=== PATIENT | female | born 1960 | race Caucasian/White ===

== ENCOUNTER 2016-06-05 06:04 | Emergency (ER) | payer MEDICARE, OTHER ==
[~2016-06-05 06:04] MED LIST: ADVAIR 100-501 EAC1; ADVAIR 250-501 EAC1; ALAVERT10 MG/TAB; ATARAX; BENTYL20 MG PO; BENZAPRIL; BUSPAR5 M1 DOB; COMBIVENT; COMBIVENT RESPIM4 GM; COMBIVENT U/D3 ML; DOXYCYCLINE PO; FAMOTIDINE PO; GABAPENTIN300 MG; HYDROCHLOROTH12.5 MG; HYDROCODON-ACE1 EAC7 PO; HYDROCORTISONE30 G1; LEVAQUIN PO; LEVAQUIN750 M1 PO; LOVAZA1 G PO; METFORMIN HCL500 M1; METFORMIN PO; METOPROLOL SUCC25 MG PO; MIRTAZAPINE30 MG PO; MIRTAZAPINE45 M1 PO; MULTIPLE VITAMI1 T11 PO; NEURONTIN100 MG; NICODERM C1 PATCH .1 TD; NORCO1 TAB 10/3 PO; NORVASC10 MG PO; OMEGA 3; PRAVACHOL; PRAVACHOL PO; PRAVASTATIN SOD40 MG PO; PRINIVIL5 MG PO; PROMETHAZI6.25 MG/5 PO; RAYOS2 MG PO; REMERON; RISPERDAL0.5 M1; RISPERIDONE; RISPERIDONE PO; SERTRALINE HCL25 M2; SYNTHROID; SYNTHROID0.1 MG; SYNTHROID25 MCG PO; ZOFRAN ODT4 MG PO; ZOLOFT PO
[2016-06-10] MEDS ORDERED: DOXYCYCLINE HY100 M3 (22:19)
[2016-06-10] MEDS ORDERED: DELTASONE20 MG (22:19)
[2016-06-14] MEDS ORDERED: ZOLOFT PO (12:54)
[2016-06-14] MEDS ORDERED: RISPERIDONE PO (12:54)
[2016-06-14] MEDS ORDERED: REMERON PO (12:57)
[2016-06-14] MEDS ORDERED: PRAVACHOL PO (12:57)
[2016-06-14] MEDS ORDERED: SYNTHROID PO (12:57)
[2016-06-14] MEDS ORDERED: TOPROL XL PO (12:58)
[2016-06-14] MEDS ORDERED: ADVAIR 100-501 EAC1 INH (12:59)
[2016-06-14] MEDS ORDERED: COMBIVENT RESPIM4 GM INH (12:59)
[2016-06-14] MEDS ORDERED: METFORMIN (13:00)
== END 2016-06-05 06:05 | disposition left against medical advice (07) ==
LOC: SED 06:04
DX: Z53.21 Procedure and treatment not carried out due to patient leaving prior to being seen by health care provider (principal)

== ENCOUNTER 2016-06-14 13:41 | Emergency (ER) | payer MEDICARE, OTHER ==
--- NOTE | ~2016-06-14 | MR18 ---
[facility] A Service of [facility] RADIOLOGY TEXT RESULTS PATIENT: RUI MARTINEZ LOCATION: SED : 59 UNIT #: [id number] AGE: [address]: Rush Brasher MD SEX: F ORDER DR: [id number] [address] [address] [id number] E MR#: [id number] Acc #: [id number] NAME: RUI MARTINEZ. : 1960 SEX: F STUDY DATE/TIME: 06/14/2016 14:41 UNIT: SED ROOM: STUDY DESCRIPTION: MR Brain Wo Contrast Attending Physician: Rush Brasher M.D. Ordering Physician: Rush Brasher M.D. Primary Care Physician: Lakia Roth M.D. MRI CENTER REPORT This report is preliminary unless electronic signature is present. EXAM MRI of the brain without contrast, 06/14/2016. HISTORY 55-year-old female with left-sided numbness and chest pain, as well as palpitations. Left face also is numb, starting this morning. Weakness in the left upper extremity. TECHNIQUE Sagittal and axial T1, axial T2, axial FLAIR, axial diffusion, axial gradient echo images were obtained through the region of the brain. FINDINGS There is no shift of the midline structures, mass effect, or restricted diffusion present within the brain parenchyma. On the FLAIR sequence, there are no changes of chronic infarction or sequelae of small vessel ischemic change. Midline structures are intact, and no pituitary or pineal lesions are seen. No hemorrhage or blood products are demonstrated on the gradient echo image. The paranasal sinuses and mastoid air cells are clear. No orbital lesions are seen. IMPRESSION 1. No evidence of an acute or chronic infarct. 2. No mass effect or edema. 3. Clear sinuses and mastoid air cells. Dictated by... Antonio Simpson M.D. [facility] A Service of [facility] RADIOLOGY TEXT RESULTS PATIENT: RUI MARTINEZ LOCATION: SED : 59 UNIT #: [id number] AGE: [address]: Rush Brasher MD SEX: F ORDER DR: THIS IS AN ELECTRONICALLY VERIFIED REPORT Antonio Simpson M.D. at 06/15/2016 5:15 PM Dee TD: 06/14/2016 19:15 JOB #: [id number] MRI CENTER REPORT
--- NOTE | ~2016-06-14 | EKG ---
PATIENT: RUI MARTINEZ UNIT #: [id number] Ventricular Rate: 97 BPM Atrial Rate: 97 BPM P-R Interval: 140 ms QRS Duration: 82 ms Q-T Interval: 376 ms QTC Calculation(Bezet): 477 ms P [place]: 57 degrees Calculated R [place]: 55 degrees Calculated T [place]: 55 degrees Diagnosis Line: Normal sinus rhythm Diagnosis Line: RSR' or QR pattern in V1 suggests right Diagnosis Line: ventricular conduction delay Diagnosis Line: Prolonged QT Diagnosis Line: Abnormal ECG Diagnosis Line: When compared with ECG of 10-JUN-2016 22:14, Diagnosis Line: Premature supraventricular complexes are no longer Diagnosis Line: Present Diagnosis Line: Confirmed by KEYONA BARGER MD ([id number]) on 06/14/2016 Diagnosis Line: 6:04:26 PM INTERPRETING MD: DENITA IRENE
[2016-06-14 13:19] LABS: POC - CKMB 2.4 ng/mL (0.0-7.9); POC - TROPONIN <0.05 ng/mL (<=0.05)
[~2016-06-14 13:41] MED LIST changes: +ADVAIR 100-501 EAC1 INH; +COMBIVENT RESPIM4 GM INH; +DELTASONE20 MG; +DOXYCYCLINE HY100 M3; +METFORMIN; +REMERON PO; +SYNTHROID PO; +TOPROL XL PO
[2016-06-14 13:46] LABS: BASOPHIL# 0.1 X10e3 (0-0.3); BASOPHIL% 0.4 % (0-2.5); EOSINOPHIL# 0.2 X10e3 (0-0.7); EOSINOPHIL% 1.1 % (0.0-7.0); HEMATOCRIT 46.5 % (35.0-45.0); HEMOGLOBIN 15.2 gm/dL (12.0-16.0); LYMPHOCYTE# 4.8 X10e3 (1.0-3.5); LYMPHOCYTE% 35.7 % (17.0-45.0); MEAN CELL VOLUME 79.9 FL (83-96); MEAN CORPUSCULAR HEMOGLOBIN 26.2 PG (28-34); MEAN CORPUSCULAR HGB CONC 32.8 g/dL (30-36); MONOCYTE# 0.8 X10e3 (0-1.0); MONOCYTE% 5.7 % (3.0-12.0); NEUTROPHIL# 7.7 X10e3 (1.5-7.1); NEUTROPHIL% 57.1 % (40-75); PLATELET COUNT 465 X10e3 (140-420); RED BLOOD COUNT 5.82 X10e (3.90-5.30); RED CELL DISTRIBUTION WIDTH 17.3 % (11.0-15.5); WHITE BLOOD COUNT 13.5 X10e3 (4.0-10.5)
[2016-06-14 13:47] LABS: BLOOD UREA NITROGEN 22 mg/dL (9-23); BUN/CREATININE RATIO 31.42; CALCIUM SERUM 9.7 mg/dL (8.4-10.2); CARBON DIOXIDE 28 mmol/L (22-31); CHLORIDE 99 mmol/L (100-111); CREATININE SERUM 0.7 mg/dL (0.6-1.4); GLOM FILT RATE Estimated ABOVE60 mL/min (>60); GLUCOSE FASTING 102 mg/dL (70-110); POTASSIUM 3.3 mmol/L (3.5-5.1); SODIUM 137 mmol/L (135-145)
[2016-06-14 13:48] LABS: DIFF IND NO
[2016-06-14 15:37] LABS: POC - CKMB 1.8 ng/mL (0.0-7.9); POC - MYOGLOBIN 78.8 ng/mL (0.0-169.0); POC - TROPONIN <0.05 ng/mL (<=0.05)
== END 2016-06-14 16:12 | disposition home or self-care (01) ==
LOC: SED 13:41
PROVIDERS: Emergency Medicine
DX: R07.89 Other chest pain (principal); R00.2 Palpitations; R20.9 Unspecified disturbances of skin sensation; F17.200 Nicotine dependence, unspecified, uncomplicated; Z88.0 Allergy status to penicillin; Z88.1 Allergy status to other antibiotic agents
CPT/HCPCS: 36415; 70551; 80048; 82553; 83874; 84484; 85025; 99284

== ENCOUNTER 2016-06-23 05:30 | Emergency (ER) | payer MEDICARE, OTHER ==
--- NOTE | ~2016-06-23 | EKG ---
PATIENT: RUI MARTINEZ UNIT #: [id number] Ventricular Rate: 70 BPM Atrial Rate: 70 BPM P-R Interval: 148 ms QRS Duration: 88 ms Q-T Interval: 420 ms QTC Calculation(Bezet): 453 ms P [place]: 45 degrees Calculated R [place]: 44 degrees Calculated T [place]: 34 degrees Diagnosis Line: Normal sinus rhythm Diagnosis Line: Normal ECG Diagnosis Line: When compared with ECG of 14-JUN-2016 12:49, Diagnosis Line: No significant change was found Diagnosis Line: Confirmed by KEYONA BARGER MD ([id number]) on 06/24/2016 Diagnosis Line: 5:36:31 PM INTERPRETING MD: DENITA IRENE
== END 2016-06-23 05:37 | disposition home or self-care (01) ==
LOC: SED 05:30
DX: R00.2 Palpitations (principal); F41.9 Anxiety disorder, unspecified; E11.9 Type 2 diabetes mellitus without complications; J44.9 Chronic obstructive pulmonary disease, unspecified; F17.200 Nicotine dependence, unspecified, uncomplicated
CPT/HCPCS: 93005; 99283

== ENCOUNTER 2016-06-25 22:34 | Emergency (ER) | payer MEDICARE, OTHER ==
[2016-06-26] MEDS ORDERED: ZOLOFT PO (01:58)
[2016-06-26] MEDS ORDERED: RISPERIDONE PO (01:59)
[2016-06-26] MEDS ORDERED: REMERON45 MG PO (01:59)
[2016-06-26] MEDS ORDERED: PRAVASTATIN SOD40 MG PO (02:00)
[2016-06-26] MEDS ORDERED: SYNTHROID25 MCG PO (02:00)
[2016-06-26] MEDS ORDERED: FISH OIL 1,001000 M1 PO (02:01)
[2016-06-26] MEDS ORDERED: ZOLOFT50 MG PO (09:30)
[2016-06-26] MEDS ORDERED: METFORMIN HCL500 M3 PO ×2 (09:34)
[2016-06-26] MEDS ORDERED: BUSPAR15 MG PO (09:35)
[2016-06-26] MEDS ORDERED: LOPRESSOR PO (09:37)
[2016-06-26] MEDS ORDERED: ADVAIR 250-501 EAC1 INH (09:38)
[2016-06-26] MEDS ORDERED: ASPIRIN81 MG PO (11:15)
== END 2016-06-25 22:35 | disposition left against medical advice (07) ==
LOC: SED 22:34
DX: Z53.21 Procedure and treatment not carried out due to patient leaving prior to being seen by health care provider (principal)

== ENCOUNTER 2016-06-26 00:34 | Observation (INO) | payer MEDICARE, OTHER ==
[2016-06-25 23:51] LABS: BASOPHIL# 0.1 X10e3 (0-0.3); BASOPHIL% 0.7 % (0-2.5); EOSINOPHIL# 0.4 X10e3 (0-0.7); EOSINOPHIL% 3.3 % (0.0-7.0); HEMATOCRIT 41.8 % (35.0-45.0); HEMOGLOBIN 13.5 gm/dL (12.0-16.0); LYMPHOCYTE# 4.4 X10e3 (1.0-3.5); LYMPHOCYTE% 39.8 % (17.0-45.0); MEAN CELL VOLUME 80.7 FL (83-96); MEAN CORPUSCULAR HGB CONC 32.2 g/dL (30-36); MEAN PLATELET VOLUME 7.1 FL (6.5-11.5); NEUTROPHIL# 5.3 X10e3 (1.5-7.1); NEUTROPHIL% 47.2 % (40-75); PLATELET COUNT 377 X10e3 (140-420); RED BLOOD COUNT 5.18 X10e (3.90-5.30); RED CELL DISTRIBUTION WIDTH 17.5 % (11.0-15.5); WHITE BLOOD COUNT 11.1 X10e3 (4.0-10.5)
[2016-06-25 23:55] LABS: DIFF IND NO
--- NOTE | ~2016-06-26 | CR72 ---
[facility] A Service of [facility] RADIOLOGY TEXT RESULTS PATIENT: RUI MARTINEZ LOCATION: [place] [address] : 58 UNIT #: [id number] AGE: [address]: Amanda Coronado MD SEX: F ORDER DR: [id number] [facility] [address]. [place], [place] [address] [id number] I MR#: [id number] Acc #: [id number] NAME: RUI MARTINEZ. : 1960 SEX: F STUDY DATE/TIME: 06/26/2016 0:36 UNIT: C5B ROOM: [facility] STUDY DESCRIPTION: CR Chest Single View Portable Attending Physician: Amanda Coronado M.D. Ordering Physician: Raymundo Jimenez M.D. Primary Care Physician: Lakia Roth M.D. MEDICAL IMAGING REPORT This report is preliminary unless electronic signature is present EXAM AP portable chest. DATE OF EXAM 06/26/2016 HISTORY Chest pain and wheezing. COPD, shortness of breath for 1 day. COMPARISON AP portable chest, 06/08/2016. FINDINGS Left basilar atelectasis or infiltrate is present. There may be small left pleural effusion as well. Old left seventh rib fracture. Degenerative spurring in the thoracic spine IMPRESSION 1. Left basilar atelectasis or infiltrate with small left pleural effusion. 2. Old left rib fracture. Dictated by... Maryana Echeverria M.D. THIS IS AN ELECTRONICALLY VERIFIED REPORT Maryana Echeverria M.D. at 06/26/2016 10:47 PM HORACE/reese TD: 06/26/2016 20:44 JOB #: [id number] [facility] Service [facility] RADIOLOGY TEXT RESULTS PATIENT: RUI MARTINEZ LOCATION: [place] [address] : 58 UNIT #: [id number] AGE: [address]: Amanda Coronado MD SEX: F ORDER DR: MEDICAL IMAGING REPORT COPY
--- NOTE | ~2016-06-26 | HP ---
Unit #: [id number] #: [id number] Patient: RUI MARTINEZ [id number] [facility]. [address] [place], [place] [address] [id number] I MR#: [id number] NAME: RUI MARTINEZ. ROOM: 557 Age: 55 Sex: F Admission Date: 06/26/2016 : 1960 Attending Physician: Amanda Coronado M.D. Primary Care Physician: Lakia Roth M.D. HISTORY AND PHYSICAL HISTORY OF PRESENT ILLNESS This is a 55-year-old white female known to Dr. Herbert, with a past medical history of palpitations. The patient states that she had a Holter monitor sometime last week. She called the office for the results and was told by the nurse that it was normal. She had an exercise Cardiolite stress test in 12/2015 that revealed no ischemia and an ejection fraction of 77%. However, she had poor exercise tolerance of only 3 minutes 19 seconds. A two-dimensional echocardiogram was completed at that time and revealed normal valves. Additional past medical history includes hypertension, hyperlipidemia, hypothyroidism, anxiety, depression, chronic obstructive pulmonary disease and type 2 diabetes mellitus on Metformin. The patient continues to actively use tobacco. She presented to the emergency department with multiple complaints. She states that for quite some time she has had palpitations. Recently over the last few days the palpitations have worsened in frequency. Yesterday she developed an episode where her heart was racing and she had some pain in her left anterior chest. The pain was difficult to describe. There was no radiation into the neck, jaw or shoulders. However, she had some numbness in her arms. She felt very weak and fatigued and also had some numbness in her legs during the episode. It lasted for a couple of seconds and then resolved. She admits to some shortness of breath which she relates to her chronic obstructive pulmonary disease. There are no reports of PND, orthopnea or lower extremity edema. She has some occasional dizziness, but no history of syncope. She has been taking all of her medications. She was put on metoprolol by her primary care physician, but can only take a low dose due to borderline low blood pressure readings at home. In the emergency department her temperature was 98.4, pulse 79, blood pressure 124/81 and O2 saturations 94% on room air. Initial labs revealed normal renal function. Potassium was low at 3.2. Troponin was negative at 0.03. The patient was given a liter of normal saline and 125 mg of IV Solu-Medrol. She was admitted for further evaluation of chest pain and palpitations. PAST MEDICAL HISTORY 1. Recent Holter monitor last week, reportedly normal per patient. Records unavailable. 2. Two-dimensional echocardiogram 01/06/2016 revealed a left ventricular ejection fraction of 55%. Normal valves. 3. Exercise Cardiolite stress test 01/06/2016 revealed no ischemia. Unit #: [id number] #: [id number] Patient: RUI MARTINEZ Left ventricular ejection fraction 77%. Poor exercise tolerance at 3 minutes 19 seconds. 4. Hyperlipidemia. 5. Hypertension. 6. Diabetes mellitus type 2 on oral medications. 7. Chronic obstructive pulmonary disease. 8. Hypothyroidism. 9. Depression. 10. Anxiety. 11. Active tobacco abuse. PAST SURGICAL HISTORY 1. Appendectomy. 2. Right foot surgery. 3. Fibroid tumor removal. 4. Thumb surgery. 5. Colonoscopy in 2004. SOCIAL HISTORY The patient lives in a private residence. She continues to actively smoke a few cigarettes per day. She has smoked up to one pack of cigarettes per day for over 20 years. There are no reports of alcohol or illicit drug use. FAMILY HISTORY Noncontributory for heart disease. ALLERGIES Penicillin and clarithromycin. HOME MEDICATIONS 1. Advair 1 Discus inhalation b.i.d. 2. Remeron 45 mg p.o. at nighttime. 3. Zoloft 100 mg p.o. q. morning. 4. Zoloft 50 mg p.o. at bedtime. 5. Metformin 1000 mg q. morning and 500 mg at bedtime. 6. Risperdal 3 mg p.o. t.i.d. Of note, there has been a discrepancy with the dose of this particular medication. [facility] pharmacy was called for clarification. 7. BuSpar 15 mg p.o. t.i.d. 8. Metoprolol tartrate 12.5 mg p.o. daily. 9. Pravastatin 40 mg p.o. daily. 10. Fish oil 1000 mg p.o. b.i.d. 11. Synthroid 0.025 m p.o. daily before breakfast. REVIEW OF SYSTEMS Twelve point review of systems negative except for details noted above. The patient has had an occasional cough with productive sputum. She admits to headaches and recent dizziness, but not actively. She has had some diarrhea, but not currently. There are no reports of fever or chills. PHYSICAL EXAMINATION GENERAL: The patient is a 55-year-old white female who is anxious, but in no acute distress. VITALS: Temperature 97.6, pulse 74, blood pressure 121/68. SKIN: Warm and dry. HEENT: NECK: Supple. No jugular venous distension. No hepatojugular reflux. Unit #: [id number] #: [id number] Patient: RUI MARTINEZ Normal carotid upstrokes. No carotid bruits auscultated. LUNGS: Bilateral breath sounds have good air entry throughout lung ramos. Respirations even and unlabored. No rales, rhonchi or wheezes. HEART: S1 and S2. Regular rate and rhythm. No murmurs, rubs or gallops. ABDOMEN: Soft, nontender and nondistended. Positive bowel sounds auscultated in four quadrants. No ascites noted. EXTREMITIES: Bilateral lower extremities have no pretibial pitting edema. Dorsalis pedis and posterior tibial pulses 2+. Capillary refill less than 3 seconds. DIAGNOSTIC STUDIES LABORATORY: White blood cell count 11.1, hemoglobin 13.5, hematocrit 41.8, platelets 377, sodium 141, potassium 3.2, chloride 104, CO2 26, BUN 9, creatinine 0.5, glucose 88, troponin 0.03 and 0.03. TSH and fasting lipid profile pending. CARDIOVASCULAR: Electrocardiogram reveals sinus rhythm with nonspecific ST-T wave changes in the inferior leads. QTC 451 msec. ASSESSMENT 1. Palpitations. 2. Chest pain, ruled out for myocardial infarction. 3. Exercise Cardiolite stress test with no ischemia 12/2015. 4. Left ventricular ejection fraction 55% with normal valves 12/2015. 5. Hypokalemia. 6. Anxiety. 7. Depression. 8. Chronic obstructive pulmonary disease with continued tobacco abuse. 9. Hyperlipidemia. 10. Diabetes mellitus type 2. PLAN 1. The patient presented to the hospital with complaints of chest pain and palpitations. She is admitted for further observation. 2. TSH is pending for today. The patient's potassium is low and has been supplemented. 3. Cardiac enzymes are negative and she has ruled out for myocardial infarction. 4. She has been recommended to undergo cardiac catheterization due to recurrent chest pain and recently normal stress test. 5. The office will call the patient to arrange an outpatient cardiac catheterization within the next week. 6. The office will also arrange an outpatient Holter versus event monitor. 7. The patient does have some wheezing on exam and states that she follows with Dr. Ho. She has an appointment next week. 8. She wants to go home and follow up with in the office. 9. She has been encouraged to quit smoking. Dictated by Shalonda England APRN for Shreyas Morales/gabriella Unit #: [id number] #: [id number] Patient: MYKE MARTINEZGm Yusuf TD: 06/26/2016 12:03 JOB #: [id number] HISTORY AND PHYSICAL X X HISTORY AND PHYSICAL
--- NOTE | ~2016-06-26 | EKG ---
PATIENT: RUI MARTINEZ UNIT #: [id number] Ventricular Rate: 72 BPM Atrial Rate: 72 BPM P-R Interval: 152 ms QRS Duration: 86 ms Q-T Interval: 412 ms QTC Calculation(Bezet): 451 ms P [place]: 55 degrees Calculated R [place]: 29 degrees Calculated T [place]: 19 degrees Diagnosis Line: Normal sinus rhythm Diagnosis Line: Normal ECG Diagnosis Line: When compared with ECG of 23-JUN-2016 05:18, Diagnosis Line: No significant change was found Diagnosis Line: Confirmed by JAMI GALICIA MD ([id number]) on Diagnosis Line: 06/28/2016 12:02:36 AM INTERPRETING MD: FRIDA IRENE
[2016-06-26 00:20] LABS: ALBUMIN SERUM 3.9 g/dL (3.5-5.0); ALKALINE PHOSPHATASE 56 U/L (32-92); ALT (SGPT) 25 U/L (10-40); AST (SGOT) 26 U/L (10-42); BILIRUBIN, DIRECT 0.1 mg/dL (0.0-0.2); BILIRUBIN,INDIRECT 0.2 mg/dL (0.0-0.9); BILIRUBIN,TOTAL 0.3 mg/dL (0.2-2.0); BLOOD UREA NITROGEN 9 mg/dL (9-23); CALCIUM SERUM 8.9 mg/dL (8.4-10.2); CARBON DIOXIDE 26 mmol/L (22-31); CHLORIDE 104 mmol/L (100-111); CREATININE SERUM 0.5 mg/dL (0.6-1.4); GLOM FILT RATE Estimated ABOVE60 mL/min (>60); GLUCOSE FASTING 88 mg/dL (70-110); POTASSIUM 3.2 mmol/L (3.5-5.1); PROTEIN TOTAL SERUM 6.9 g/dL (6.0-8.3); SODIUM 141 mmol/L (135-145)
[2016-06-26 00:41] LABS: URINE SOURCE CLEAN CATCH
[2016-06-26 00:55] LABS: URINE APPEARANCE CLEAR; URINE BILIRUBIN NEG (NEG); URINE BLOOD 1+ (NEG); URINE COLOR YELLOW; URINE GLUCOSE NEG (NEG); URINE KETONE NEG (NEG); URINE LEUKOCYTE ESTERASE NEG (NEG); URINE NITRATE NEG (NEG); URINE PH 6.5 (5-8); URINE PROTEIN NEG (NEG); URINE SPECIFIC GRAVITY 1.007 (1.003-1.035); URINE UROBILINOGEN 0.2 MG/DL (NEG)
[2016-06-26 00:58] LABS: URINE BACTERIA AUWI NEG (NEGATIVE); URINE SQUAMOUS EPITHELIAL CELL NONE SEEN /[HPF]; UWBCS1 AUWI 0-2 (0-5)
[2016-06-26 01:01] LABS: CULTURE INDICATED? NO
[2016-06-26 01:19] LABS: POC - CKMB 1.3 ng/mL (0.0-7.9); POC - TROPONIN <0.05 ng/mL (<=0.05)
[2016-06-26] MEDS ORDERED: ZOLOFT PO (01:58)
[2016-06-26] MEDS ORDERED: RISPERIDONE PO (01:59)
[2016-06-26] MEDS ORDERED: REMERON45 MG PO (01:59)
[2016-06-26] MEDS ORDERED: PRAVASTATIN SOD40 MG PO (02:00)
[2016-06-26] MEDS ORDERED: SYNTHROID25 MCG PO (02:00)
[2016-06-26] MEDS ORDERED: FISH OIL 1,001000 M1 PO (02:01)
[2016-06-26 04:23] LABS: CK TOTAL 36 IU/L (26-140)
[2016-06-26] MEDS ORDERED: ZOLOFT50 MG PO (09:30)
[2016-06-26] MEDS ORDERED: METFORMIN HCL500 M3 PO ×2 (09:34)
[2016-06-26] MEDS ORDERED: BUSPAR15 MG PO (09:35)
[2016-06-26] MEDS ORDERED: LOPRESSOR PO (09:37)
[2016-06-26] MEDS ORDERED: ADVAIR 250-501 EAC1 INH (09:38)
[2016-06-26 11:07] LABS: %MB 5.1 % (0.0-4.0); MB 3.6 ng/ml
[2016-06-26] MEDS ORDERED: ASPIRIN81 MG PO (11:15)
[2016-06-26 11:18] LABS: CHOLESTEROL 157 mg/dL (0-200); HDL CHOLESTEROL 39 mg/dL (35-95); LDL CHOLESTEROL 78 mg/dL ([, -130]); LDL/HDL RATIO 2 RATIO (0-4); TRIGLYCERIDES 199 mg/dL (10-160)
== END 2016-06-26 12:10 | disposition home or self-care (01) ==
LOC: CED 00:34 → CEDOF 01:30 → C5B 03:10
PROVIDERS: Emergency Medicine; Internal Medicine Cardiovascular Disease
DX: R00.2 Palpitations (principal); R07.89 Other chest pain; E87.6 Hypokalemia; F41.9 Anxiety disorder, unspecified; F32.9 Major depressive disorder, single episode, unspecified; J44.9 Chronic obstructive pulmonary disease, unspecified; E78.5 Hyperlipidemia, unspecified; E11.9 Type 2 diabetes mellitus without complications; Z79.84 Long term (current) use of oral hypoglycemic drugs; I10 Essential (primary) hypertension; F17.210 Nicotine dependence, cigarettes, uncomplicated; Z88.1 Allergy status to other antibiotic agents; Z88.0 Allergy status to penicillin
CPT/HCPCS: 36415; 71010; 80048; 80061; 80076; 81003; 82550; 82553; 82947; 84443; 84484; 85025; 93005; 94640; 96361; 96374; 99285; G0378; J1650; J2930

== ENCOUNTER 2016-06-30 23:55 | Emergency (ER) | payer MEDICARE, OTHER ==
--- NOTE | ~2016-06-30 | CT16 ---
[facility] A Service of [facility] RADIOLOGY TEXT RESULTS PATIENT: RUI MARTINEZ LOCATION: [facility] : 59 UNIT #: [id number] AGE: [address]: Jeanie Thornton MD SEX: F ORDER DR: [id number] [facility] [address] [place], [place] [address] [id number] MR#: [id number] #: [id number] NAME: RUI MARTINEZ. : 1960 SEX: F STUDY DATE/TIME: 07/01/2016 1:15 UNIT: [facility] ROOM: STUDY DESCRIPTION: CT Angio Chest for PE Attending Physician: Jeanie Thornton M.D. Ordering Physician: Jeanie Thornton M.D. Primary Care Physician: Lakia Roth M.D. MEDICAL IMAGING REPORT This report is preliminary unless electronic signature is present EXAM CT angiography of the chest with contrast pulmonary embolism protocol. Date: 07/01/2016 HISTORY Left upper chest pain and shortness of breath today. Stabbing pain in the back. COMPARISON CTA chest PE protocol 03/29/2016. AP portable chest 06/30/2016 at 2330. TECHNIQUE 2 mm axial images through the chest after IV contrast administration. 3-D coronal MIP reformatted images were obtained. This CT exam was performed with one or more of the following radiation dose reduction techniques: Automatic exposure control, adjustment of mA and/or kV according to patient size, and iterative reconstruction. FINDINGS There is no pulmonary embolism. There is no thoracic aortic aneurysm or aortic dissection. No pathologic adenopathy. No pericardial effusion. No pleural effusion. Cholelithiasis. Remainder included upper abdominal organs appear unremarkable. 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 Chronic-appearing scarring within the lingula. Mild emphysematous changes. Multiple old left rib fractures, some of which demonstrate no osseous union, but are similar to the prior study. No acute displaced left rib fracture is identified. No acute vertebral body fracture is seen. IMPRESSION 1. No pulmonary embolism. No aortic aneurysm or aortic dissection. [facility] A Service of [facility] RADIOLOGY TEXT RESULTS PATIENT: RUI MARTINEZ LOCATION: [facility] : 58 UNIT #: [id number] AGE: [address]: Jeanie Thornton MD SEX: F ORDER DR: 2. Mild scarring or atelectasis in the lingula. No dense consolidation. 3. Mild emphysema. 4. Multiple old left rib fractures, some of which are nonunited, but appear similar to the 03/29/2016 examination. 5. Cholelithiasis. 6. 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 Dictated by... Maryana Echeverria M.D. THIS IS AN ELECTRONICALLY VERIFIED REPORT Maryana Echeverria M.D. at 07/02/2016 12:11 AM DEIRDRE/thomas TD: 07/01/2016 12:08 JOB #: [id number] MEDICAL IMAGING REPORT COPY
--- NOTE | ~2016-06-30 | CR72 ---
[facility] A Service of [facility] RADIOLOGY TEXT RESULTS PATIENT: RUI MARTINEZ LOCATION: [facility] : 58 UNIT #: [id number] AGE: [address]: Jeanie Thornton MD SEX: F ORDER DR: [id number] [facility] [address]. [place], [place] [address] [id number] E MR#: [id number] Acc #: [id number] NAME: RUI MARTINEZ : 1960 SEX: F STUDY DATE/TIME: 06/30/2016 23:30 UNIT: [facility] ROOM: STUDY DESCRIPTION: CR Chest Single View Portable Attending Physician: Jeanie Thornton M.D. Ordering Physician: Jeanie Thornton M.D. Primary Care Physician: Lakia Roth M.D. MEDICAL IMAGING REPORT This report is preliminary unless electronic signature is present EXAM AP portable chest DATE 06/30/2016 at 2330 HISTORY 55-year-old female with cough and back pain starting today, 06/30/2016. No known injury. History of cardiac arrhythmia. History of smoking. COMPARISON AP portable chest radiograph 06/26/2016. FINDINGS Old left rib fractures are demonstrated. There is minimal linear scarring or subsegmental atelectasis in the left costophrenic angle. No dense lung consolidations are seen. Heart size is normal. No pleural effusion or pneumothorax. Degenerative endplate spurring is present within the thoracic spine. IMPRESSION 1. Minimal linear scarring or subsegmental atelectasis in the left costophrenic angle. No consolidation. 2. Old left rib fracture. Dictated by... Maryana Echeverria M.D. THIS IS AN ELECTRONICALLY VERIFIED REPORT Maryana Echeverria M.D. at 07/02/2016 12:12 AM [facility]/thomas TD: 07/01/2016 11:43 [facility] A Service of [facility] RADIOLOGY TEXT RESULTS PATIENT: RUI MARTINEZ LOCATION: [facility] #: [id number] : 58 UNIT #: [id number] AGE: [address]: Jeanie Thornton MD SEX: F ORDER DR: JOB #: [id number] MEDICAL IMAGING REPORT COPY
--- NOTE | ~2016-06-30 | EKG ---
PATIENT: RUI MARTINEZ UNIT #: [id number] Ventricular Rate: 82 BPM Atrial Rate: 82 BPM P-R Interval: 146 ms QRS Duration: 84 ms Q-T Interval: 418 ms QTC Calculation(Bezet): 488 ms P [place]: 52 degrees Calculated R [place]: 51 degrees Calculated T [place]: 47 degrees Diagnosis Line: Normal sinus rhythm Diagnosis Line: Low voltage QRS Diagnosis Line: Prolonged QT Diagnosis Line: Abnormal ECG Diagnosis Line: No previous ECGs available Diagnosis Line: Confirmed by KEYONA BARGER MD ([id number]) on 07/01/2016 Diagnosis Line: 5:46:25 PM INTERPRETING MD: DENITA IRENE
[2016-06-30 23:47] LABS: POC - TROPONIN <0.05 ng/mL (<=0.05)
[2016-06-30 23:55] LABS: BASOPHIL# 0.1 X10e3 (0-0.3); BASOPHIL% 0.6 % (0-2.5); EOSINOPHIL# 0.3 X10e3 (0-0.7); EOSINOPHIL% 2.3 % (0.0-7.0); HEMATOCRIT 41.4 % (35.0-45.0); HEMOGLOBIN 13.3 gm/dL (12.0-16.0); LYMPHOCYTE# 4.7 X10e3 (1.0-3.5); LYMPHOCYTE% 42.4 % (17.0-45.0); MEAN CELL VOLUME 80.3 FL (83-96); MEAN CORPUSCULAR HEMOGLOBIN 25.8 PG (28-34); MEAN CORPUSCULAR HGB CONC 32.1 g/dL (30-36); MEAN PLATELET VOLUME 7.2 FL (6.5-11.5); MONOCYTE# 0.9 X10e3 (0-1.0); MONOCYTE% 7.8 % (3.0-12.0); NEUTROPHIL# 5.2 X10e3 (1.5-7.1); NEUTROPHIL% 46.9 % (40-75); PLATELET COUNT 364 X10e3 (140-420); RED BLOOD COUNT 5.15 X10e (3.90-5.30); RED CELL DISTRIBUTION WIDTH 16.9 % (11.0-15.5); WHITE BLOOD COUNT 11.1 X10e3 (4.0-10.5)
[~2016-06-30 23:55] MED LIST changes: +ADVAIR 250-501 EAC1 INH; +ASPIRIN81 MG PO; +BUSPAR15 MG PO; +FISH OIL 1,001000 M1 PO; +LOPRESSOR PO; +METFORMIN HCL500 M3 PO; +REMERON45 MG PO; +ZOLOFT50 MG PO
[2016-06-30 23:56] LABS: DIFF IND NO
[2016-07-01 00:06] LABS: INFLUENZA A NEG (NEG); INFLUENZA B NEG (NEG)
[2016-07-01 00:17] LABS: BLOOD UREA NITROGEN 16 mg/dL (9-23); BUN/CREATININE RATIO 22.85; CALCIUM SERUM 9.7 mg/dL (8.4-10.2); CARBON DIOXIDE 29 mmol/L (22-31); CHLORIDE 100 mmol/L (100-111); CREATININE SERUM 0.7 mg/dL (0.6-1.4); GLOM FILT RATE Estimated ABOVE60 mL/min (>60); GLUCOSE FASTING 110 mg/dL (70-110); POTASSIUM 3.4 mmol/L (3.5-5.1); SODIUM 137 mmol/L (135-145)
== END 2016-07-01 02:22 | disposition home or self-care (01) ==
LOC: CED 23:55
PROVIDERS: Emergency Medicine
DX: M54.9 Dorsalgia, unspecified (principal); R09.1 Pleurisy; I10 Essential (primary) hypertension; Z79.899 Other long term (current) drug therapy; Z88.1 Allergy status to other antibiotic agents; Z88.0 Allergy status to penicillin
CPT/HCPCS: 71010; 71275; 80048; 82553; 83880; 84484; 85025; 85379; 87804; 93005; 99284; Q9967

== ENCOUNTER 2016-07-20 06:13 | Observation (INO) | payer MEDICARE, OTHER ==
--- NOTE | ~2016-07-20 | DS ---
Unit #: [id number] #: [id number] Patient: RUI CHARLTON [id number] [address] [place], [place] [address] [id number] I MR#: [id number] NAME: RUI CHARLTON. ROOM: 317 Age: 55 Sex: F Admission Date: 07/20/2016 : 1960 Discharge Date: 07/21/2016 Attending Physician: Marcial Rivera M.D. Primary Care Physician: Lakia Roth M.D. DISCHARGE SUMMARY ADMITTING DIAGNOSES 1. Nonsustained ventricular tachycardia. 2. Chest pain. 3. Hyperlipidemia. 4. Hypothyroidism. 5. Anxiety. 6. Depression. 7. Chronic obstructive pulmonary disease. 8. Diabetes mellitus. 9. Tobacco use. DISCHARGE DIAGNOSES 1. Nonsustained ventricular tachycardia. 2. Chest pain, resolved. 3. Hyperlipidemia. 4. Hypothyroidism. 5. Anxiety. 6. Depression. 7. Chronic obstructive pulmonary disease. 8. Diabetes mellitus. 9. Tobacco use. PROCEDURE PERFORMED On July 21, 2016, she had a left heart catheterization with Dr. Quintero. This showed an ejection fraction of 50% to 55% and normal coronary arteries. HOSPITAL COURSE The patient is a 55-year-old female, who presented to the emergency department on July 20, 2016 with complaints of rapid heartbeat and "felt like she was dying." There has not been VT observed while in the hospital. Myocardial infarction was ruled out with serial negative troponins. Left heart catheterization was performed and showed normal coronaries and a normal EF. The patient had previous echo on January 06, 2016, which showed an ejection fraction of 55%. The patient was previously on Risperdal and this was recently discontinued due to prolonged QT. The patient has also recently had bronchitis and was placed on steroids. Her white count is elevated today but this is likely due to her recent steroid therapy. She has been afebrile. She had a urinalysis and a chest x-ray which were both negative. Today, the patient wishes to be discharged home. This was discussed with Dr. Buddy Herbert. We will set her up with a LifeVest and will have her followup in the office with Dr. Herbert within one month to repeat an EKG to see if her QT prolongation has resolved. At that time, it will be determined if an EP study is Unit #: [id number] #: [id number] Patient: RUI CHARLTON. The patient will return to the emergency department should she have any concerning symptoms in the meantime. DISCHARGE MEDICATIONS 1. Toprol XL 12.5 mg twice daily. 2. Advair 250/50 b.i.d. 3. Remeron 45 mg nightly. 4. Zoloft 100 mg q.a.m. and 50 mg q.p.m. 5. Metformin 1000 mg q.a.m. and 500 mg q.p.m. This is to be resumed on July 24, 2016. 6. BuSpar 15 mg three times daily. 7. Pravachol 40 mg daily. 8. Fish oil 1000 mg twice daily. 9. Aspirin 81 mg daily. 10. Synthroid 0.025 mg q.a.m. At the time of discharge, the patient's vitals are stable. Blood pressure is 98/68, heart rate 79 and regular, respirations 18, temperature 98.1, O2 saturation 96% on room air. Physical exam is unremarkable. DIAGNOSTIC STUDIES LABORATORY: Magnesium 1.8. Sodium 137, potassium 4.2, chloride 104, CO2 of 23, glucose 86, BUN 20, creatinine 0.7. Total cholesterol is 152, triglycerides 145, LDL 75, HDL 48. TSH 0.9. White blood cell 19.6, hemoglobin 14.2, hematocrit 44, platelets 375,000. PLAN Ms. Charlton will be discharged home. She will be set up with a LifeVest for her prolonged QT and nonsustained ventricular tachycardia. She will again follow with Dr. Herbert and already has an appointment for August 05. If the QT remains prolonged on the EKG, further recommendations will follow at that time. The patient was strongly advised to stop smoking. This was discussed with Dr. Rivera and Dr. Herbert prior to dictation. Dictated by... Mary Lou Murphy PNadegeA.Mari. for Marcial Rivera M.D. URI/shine TD: 07/21/2016 14:16 JOB #: [id number] DISCHARGE SUMMARY Page 1 of 1 X X DISCHARGE SUMMARY
--- NOTE | ~2016-07-20 | CO ---
Unit #: [id number] #: [id number] Patient: RUI MARTINEZ [id number] [address] [address] [id number] I MR#: [id number] NAME: RUI MARTINEZ. ROOM: 317 Age: 55 Sex: F Admission Date: 07/20/2016 : 1960 Attending Physician: Marcial Rivera M.D. Primary Care Physician: Lakia Roth M.D. CONSULTATION REPORT REASON FOR CONSULT Medical management. HISTORY OF PRESENT ILLNESS A 55-year-old female who was admitted for ventricular tachycardia and some chest pain. She was seen and admitted by the cardiology service and is being managed. She does have a past medical history of hypertension, anxiety and diabetes mellitus and some COPD and hence the consult for medical management. The patient's presenting symptoms border around her device. She may have felt that her device may have fired. PAST MEDICAL HISTORY 1. Palpitations. 2. Hypertension. 3. Hyperlipidemia. 4. Hypothyroidism. 5. Anxiety. 6. Depression. 7. COPD. 8. Diabetes mellitus type 2. PAST SURGICAL HISTORY 1. Appendectomy. 2. Right foot surgery. 3. Uterine fibroid tumor removal. 4. Thumb surgery. SOCIAL HISTORY Smoker of one pack of cigarettes a day for the last 20 years, denies alcohol or recreational drug use. FAMILY HISTORY Significant for coronary artery disease in her mother. Father is diabetic with cardiac stents. ALLERGIES Penicillin and clarithromycin. HOME MEDICATIONS Include: 1. Lopressor 12.5 mg p.o. daily. 2. BuSpar 15 mg p.o. t.i.d. Unit #: [id number] #: [id number] Patient: RUI MARTINEZ 3. Metformin 1000 mg p.o. q.a.m. and 500 mg q.p.m. 4. Fish oil 1000 mg b.i.d. 5. Synthroid 25 mcg q.a.m. 6. Pravastatin 40 mg daily. 7. Remeron 45 mg q.p.m. 8. Zoloft 100 mg q.a.m. and 50 mg q.p.m. 9. Advair Diskus 250/50 one inhalation b.i.d. 10. Aspirin 81 mg p.o. daily. PHYSICAL EXAMINATION GENERAL: On examination she was comfortable, not in distress. VITAL SIGNS: Blood pressure 116/78, pulse 86, respiratory rate 20, temperature 98.7. HEENT: Pupils were equal and reactive to light and accommodation. NECK: Neck was supple, without thyromegaly. CARDIOVASCULAR SYSTEM: First and second heart sounds only. EXTREMITIES: Mild bilateral lower extremity edema. SKIN: Warm and dry, with no rashes. LYMPHATRIC SYSTEM: No enlarged peripheral lymphadenopathy that I could appreciate. DIAGNOSTIC STUDIES LABORATORY: She had chemistry with a glucose of 78, BUN and creatinine 18 and 0.6, sodium and potassium 139 and 3.6, chloride of 107, bicarb of 22. CBC: WBC 12.8, hemoglobin and hematocrit 14.1 and 43.5 with a platelet count of 357, neutrophil count of 44.1. IMAGING: She had a chest x-ray which showed no active disease. ASSESSMENT AND PLAN 1. Diabetes mellitus type 2: Put her on Accu-Cheks q.a.c. and q.h.s. Put her on low dose sliding scale. 2. Hypothyroidism: Continue medications. 3. Chronic obstructive pulmonary disease. 4. GI prophylaxis: Protonix. 5. Chest pain: For her chest pain she is scheduled for a cardiac catheterization tomorrow by Cardiology. 6. Course of care: Full Code. Thank you for the consult. Dictated by... Shreyas Wilson/waldo TD: 07/20/2016 23:33 JOB #: [id number] Unit #: [id number] #: [id number] Patient: RUI MARTINEZ CONSULTATION REPORT Page 1 of 1 X Saba Mcgee MD CONSULTATION REPORT
--- NOTE | ~2016-07-20 | HP ---
Unit #: [id number] #: [id number] Patient: RUI CHARLTON [id number] [facility] [address]. [place], [place] [address] [id number] I MR#: [id number] NAME: RUI CHARLTON. ROOM: 18147 Age: 55 Sex: F Admission Date: 07/20/2016 : 1960 Attending Physician: Marcial Rivera M.D. Primary Care Physician: Lakia Roth M.D. HISTORY AND PHYSICAL CHIEF COMPLAINT Ventricular tachycardia and chest pain. HISTORY OF PRESENT ILLNESS Ms. Charlton is a 55-year-old female who has been having palpitations for several years. She was just here on 06/26/2016 at [facility] emergency room and evaluated for chest pain and palpitations. She ruled out for myocardial infarction and was sent home for outpatient heart catheterization. She also had an event monitor placed. Last evening while sleeping the event monitor would awaken her several times with beeping. She also had several episodes in the early hours of the morning where she felt "like I was dying." She said that the first episode was very fast and fleeting, but then it happened again soon after and she called 911. She states that her heart had a "fast feeling." She does not recall if she had any other associated symptoms as she states that these were very fast and fleeting episodes, but that she did really feel as though she was going to . Four days ago she had seen Dr. Roth and been diagnosed with bronchitis and started on steroids and antibiotics. This information was received from record review as well as from patient interview. PRIOR CARDIAC TESTING HISTORY 1. In 12/2015 she had a Cardiolite stress test which was normal and showed no ischemia, with an ejection fraction of 74%. 2. On 01/06/2016 she had a two-dimensional echocardiogram which showed ejection fraction of 55% with normal valves. PAST MEDICAL HISTORY 1. Palpitations. 2. Hypertension. 3. Hyperlipidemia. 4. Hypothyroidism. 5. Anxiety. 6. Depression. 7. Chronic obstructive pulmonary disease. 8. Diabetes. 9. Appendectomy. 10. Right foot surgery. 11. Uterine fibroid tumor removal. 12. Thumb surgery. SOCIAL HISTORY She has been a 6-lyaj-wbm-day smoker for 20 years. She started smoking at the age of 35 due to psychiatric disorder exacerbation, which included Unit #: [id number] #: [id number] Patient: RUI CHARLTON major depression. Denies the use of alcohol or drugs. FAMILY HISTORY Her mother is alive and had cardiac stents placed in her 70s. Her father was a diabetic and had cardiac stents placed in his 60s. She has a brother who was age 48 when he received cardiac stent. ALLERGIES Penicillin and clarithromycin. HOME MEDICATIONS 1. Zoloft 100 mg q.a.m. and 50 mg q.p.m. 2. Remeron 45 mg q.p.m. 3. Pravastatin 40 mg daily. 4. Synthroid 0.025 mg q.a.m. 5. Fish oil 1000 mg b.i.d. 6. Metformin 1000 mg in the morning and 500 mg in the evening. 7. BuSpar 15 mg t.i.d. 8. Lopressor 12.5 mg daily. 9. Advair 250/50 Diskus 1 inhalation b.i.d. 10. Aspirin 81 mg daily. REVIEW OF SYSTEMS GENERAL: Denies any fever, chills, flu-like symptoms. She has had a 25 pound weight loss unintentional in the last few months. SKIN: Denies any rashes, ulcerations or wounds. HEADACHES: Constantly. EYES: She had some vision problems and states that she had a CT of her head at [facility] emergency room this year some time. EARS: Denies any sudden change in hearing. BLEEDING: Denies epistaxis, hemoptysis, hematuria or melena. THROAT: Denies any problems swallowing. LUNGS: Positive for wheeze, cough and shortness of breath over the last two to three days. CHEST: Denies any pain, but positive for palpitations and tachycardia as described in history of present illness. No PND or orthopnea. GI: She has had diarrhea since colonoscopy on 05/25. : She has problems starting her stream for the last three days. EXTREMITIES: She has occasional swelling of her bilateral lower extremities. NEUROLOGIC: She has numbness and tingling chronically of her bilateral feet with some dizziness, but no history of seizures, stroke, unsteadiness or falls. PHYSICAL EXAMINATION GENERAL: Well-developed, well-nourished white female in no acute distress, resting in the bed. VITALS: Blood pressure 110/74, heart rate 93, respiratory rate 16, temperature 98.6, 134 pounds. SKIN: No obvious rashes or ulcerations noted. HEENT: Eyes, pupils equally round and reactive to light and accommodation. No xanthelasma. Oral, good dentition. Moist mucous membranes. No pallor. NECK: No carotid bruits auscultated bilaterally. No jugular vein distension. SPINE: No scoliosis. CHEST: Clear to auscultation bilaterally. No wheezes, rales or rhonchi. HEART: S1 and S2. No murmur, rub, gallop or lift. Unit #: [id number] #: [id number] Patient: RUI CHARLTON ABDOMEN: Soft and nontender. Positive bowel sounds. EXTREMITIES: Bilateral pedal pulses +1. No edema. NEUROLOGIC: Alert and oriented times three. Speech is clear. No obvious neurologic deficits. DIAGNOSTIC STUDIES IMAGING: Chest x-ray shows no active disease. Troponin less than 0.05. LABORATORY: Hemoglobin 14.1, hematocrit 43.5, platelets 357, white blood cell count 4.8, PT 9.5, INR 0.9. Sodium 139, potassium 3.6, BUN 18, creatinine 0.6, AST 14, ALT 12, albumin 3.6. CARDIOVASCULAR: EKG shows normal sinus rhythm with a prolonged QT of 487 msec. ASSESSMENT 1. Nonsustained ventricular tachycardia. 2. Chest pain. 3. Diabetes. 4. Hyperlipidemia. 5. Psychiatric disorder with major depression. 6. Prolonged QT. PLAN We have obtained the telemetry tracing from her event monitor overnight and she does have several episodes of nonsustained ventricular tachycardia, approximately 7 beats in length, with recorded 4 times during lawyers hours today. Dr. Leyva has evaluated the patient at the bedside and at this point is recommending that she discontinue her Risperdal. He is recommending left heart catheterization tomorrow and possibly an EP study subsequently. She will need to be transferred to [facility] for such a procedure and may even need an ICD. In the interim she will be evaluated with serial enzymes to rule out myocardial infarction. Will also check a urinalysis and culture if indicated. Her metoprolol tartrate will be changed to Toprol XL and further recommendations will be based on the above mentioned testing. Dictated by Nayana Smyth A.P.R.N. for Shreyas Godoy/gabriella TD: 07/20/2016 14:13 JOB #: [id number] CC: Ankit Herbert M.D. Unit #: [id number] #: [id number] Patient: RUI CHARLTON HISTORY AND PHYSICAL Page 1 of 1 X X HISTORY AND PHYSICAL
--- NOTE | ~2016-07-20 | CR72 ---
[facility] A Service of [facility] RADIOLOGY TEXT RESULTS PATIENT: RUI CHARLTON LOCATION: [facility] : 58 UNIT #: [id number] AGE: [address]: Ella Dent MD SEX: F ORDER DR: [id number] [facility] [address] [place], [place] [address] [id number] E MR#: [id number] Acc #: [id number] NAME: RUI CHARLTON. : 1960 SEX: F STUDY DATE/TIME: 07/20/2016 6:18 UNIT: [facility] ROOM: STUDY DESCRIPTION: CR Chest Single View Portable Attending Physician: Ella Dent M.D. Ordering Physician: Dagoberto Blancas Aprn Primary Care Physician: Lakia Roth M.D. MEDICAL IMAGING REPORT This report is preliminary unless electronic signature is present EXAM Portable chest INDICATIONS Chest pain today. Comparison with 06/30/2016 FINDINGS Calcified granuloma left base. No acute infiltrate. Heart size is normal. Visualized osseous structures are unremarkable. IMPRESSION No active disease Dictated by... Elvis Charlton M.D. THIS IS AN ELECTRONICALLY VERIFIED REPORT Elvis Charlton M.D. at 07/20/2016 8:20 AM Analy TD: 07/20/2016 07:36 JOB #: [id number] MEDICAL IMAGING REPORT Page 1 of 1 COPY
--- NOTE | ~2016-07-20 | EKG ---
PATIENT: RUI MARTINEZ UNIT #: [id number] Ventricular Rate: 81 BPM Atrial Rate: 81 BPM P-R Interval: 150 ms QRS Duration: 86 ms Q-T Interval: 406 ms QTC Calculation(Bezet): 471 ms P [place]: 50 degrees Calculated R [place]: 14 degrees Calculated T [place]: 24 degrees Diagnosis Line: Normal sinus rhythm Diagnosis Line: T wave abnormality, consider anterior ischemia Diagnosis Line: Abnormal ECG Diagnosis Line: Diagnosis Line: Confirmed by DERRICK JACKSON MD ([id number]) on 07/21/2016 Diagnosis Line: 10:34:34 PM INTERPRETING MD: RENETTA IRENE
--- NOTE | ~2016-07-20 | EKG ---
PATIENT: RUI MARTINEZ UNIT #: [id number] Ventricular Rate: 91 BPM Atrial Rate: 91 BPM P-R Interval: 142 ms QRS Duration: 82 ms Q-T Interval: 396 ms QTC Calculation(Bezet): 487 ms P [place]: 61 degrees Calculated R [place]: 31 degrees Calculated T [place]: 44 degrees Diagnosis Line: Normal sinus rhythm Diagnosis Line: Prolonged QT Diagnosis Line: Abnormal ECG Diagnosis Line: No previous ECGs available Diagnosis Line: Confirmed by DERRICK JACKSON MD ([id number]) on 07/20/2016 Diagnosis Line: 11:29:16 PM INTERPRETING MD: RENETTA IRENE
--- NOTE | ~2016-07-20 | DS ---
Unit #: [id number] #: [id number] Patient: RUI CHARLTON [id number] [address] [address] [id number] I MR#: [id number] NAME: RUI CHARLTON ROOM: 317 Age: 55 Sex: F Admission Date: 07/20/2016 : 1960 Discharge Date: 07/21/2016 Attending Physician: Marcial Rivera M.D. Primary Care Physician: Lakia Roth M.D. DISCHARGE SUMMARY ADDENDUM Ms. Charlton has a prolonged QT syndrome and will be placed on a LifeVest for protection against sudden cardiac . Dictated by... Mary Lou Murphy, P.A.C. for Marcial Rivera M.D. CMG/shine TD: 07/21/2016 14:31 JOB #: [id number] DISCHARGE SUMMARY Page 1 of 1 X X DISCHARGE SUMMARY
[2016-07-20 06:45] LABS: BASOPHIL# 0.1 X10e3 (0-0.3); BASOPHIL% 0.9 % (0-2.5); EOSINOPHIL# 0.3 X10e3 (0-0.7); HEMATOCRIT 43.5 % (35.0-45.0); HEMOGLOBIN 14.1 gm/dL (12.0-16.0); LYMPHOCYTE# 5.8 X10e3 (1.0-3.5); LYMPHOCYTE% 45.3 % (17.0-45.0); MEAN CELL VOLUME 82.2 FL (83-96); MEAN CORPUSCULAR HEMOGLOBIN 26.5 PG (28-34); MEAN CORPUSCULAR HGB CONC 32.3 g/dL (30-36); MEAN PLATELET VOLUME 7.1 FL (6.5-11.5); MONOCYTE% 7.7 % (3.0-12.0); NEUTROPHIL# 5.6 X10e3 (1.5-7.1); NEUTROPHIL% 44.1 % (40-75); PLATELET COUNT 357 X10e3 (140-420); RED CELL DISTRIBUTION WIDTH 17.8 % (11.0-15.5); WHITE BLOOD COUNT 12.8 X10e3 (4.0-10.5)
[2016-07-20 06:53] LABS: DIFF IND NO
[2016-07-20 07:00] LABS: INR 0.9; PROTHROMBIN TIME (PATIENT) 9.5 SECONDS (9.6-11.5)
[2016-07-20 07:29] LABS: ALBUMIN SERUM 3.6 g/dL (3.5-5.0); ALKALINE PHOSPHATASE 62 U/L (32-92); ALT (SGPT) 12 U/L (10-40); AST (SGOT) 14 U/L (10-42); BILIRUBIN, DIRECT <0.1 mg/dL (0.0-0.2); BILIRUBIN,TOTAL 0.1 mg/dL (0.2-2.0); BLOOD UREA NITROGEN 18 mg/dL (9-23); CALCIUM SERUM 8.9 mg/dL (8.4-10.2); CARBON DIOXIDE 22 mmol/L (22-31); CHLORIDE 107 mmol/L (100-111); CREATININE SERUM 0.6 mg/dL (0.6-1.4); GLOM FILT RATE Estimated 101.9 mL/min (>60); GLUCOSE FASTING 78 mg/dL (70-110); POTASSIUM 3.6 mmol/L (3.5-5.1); PROTEIN TOTAL SERUM 6.5 g/dL (6.0-8.3); SODIUM 139 mmol/L (135-145)
[2016-07-20 08:30] LABS: POC - CKMB <1.0 ng/mL (0.0-7.9); POC - TROPONIN <0.05 ng/mL (<=0.05)
[2016-07-21 01:38] LABS: URINE APPEARANCE CLEAR; URINE BILIRUBIN NEG (NEG); URINE BLOOD NEG (NEG); URINE COLOR YELLOW; URINE GLUCOSE NEG (NEG); URINE KETONE NEG (NEG); URINE LEUKOCYTE ESTERASE NEG (NEG); URINE NITRATE NEG (NEG); URINE PROTEIN NEG (NEG); URINE UROBILINOGEN 0.2 MG/DL (NEG)
[2016-07-21 01:46] LABS: CULTURE INDICATED? NO
[2016-07-21 07:31] LABS: HEMOGLOBIN 14.2 gm/dL (12.0-16.0); MEAN CELL VOLUME 82.1 FL (83-96); MEAN CORPUSCULAR HEMOGLOBIN 26.5 PG (28-34); MEAN CORPUSCULAR HGB CONC 32.2 g/dL (30-36); MEAN PLATELET VOLUME 7.1 FL (6.5-11.5); RED BLOOD COUNT 5.36 X10e (3.90-5.30); RED CELL DISTRIBUTION WIDTH 17.4 % (11.0-15.5); WHITE BLOOD COUNT 19.6 X10e3 (4.0-10.5)
[2016-07-21 08:02] LABS: BUN/CREATININE RATIO 28.57; CALCIUM SERUM 9.5 mg/dL (8.4-10.2); CREATININE SERUM 0.7 mg/dL (0.6-1.4); GLOM FILT RATE Estimated 96.9 mL/min (>60); POTASSIUM 4.2 mmol/L (3.5-5.1)
[2016-07-21 11:29] LABS: PARTIAL THROMBOPLASTIN TIME 26.1 SECONDS (23.5-31.3)
[2016-07-21] MEDS ORDERED: TOPROL XL PO (12:41)
== END 2016-07-21 18:36 | disposition home or self-care (01) ==
LOC: CED 06:13 → CEDOF 10:18 → C3A PCU 22:24
PROVIDERS: Emergency Medicine; Internal Medicine Cardiovascular Disease; Nurse Practitioner Family
PROC: 4A023N7 Measurement of Cardiac Sampling and Pressure, Left Heart, Percutaneous Approach (ICD-10-PCS; principal; 2016-07-20)
PROC: B211YZZ Fluoroscopy of Multiple Coronary Arteries using Other Contrast (ICD-10-PCS; 2016-07-20)
PROC: B215YZZ Fluoroscopy of Left Heart using Other Contrast (ICD-10-PCS; 2016-07-20)
DX: I47.2 Ventricular tachycardia (principal); R07.89 Other chest pain; I45.81 Long QT syndrome; E78.5 Hyperlipidemia, unspecified; E03.9 Hypothyroidism, unspecified; F41.9 Anxiety disorder, unspecified; F32.9 Major depressive disorder, single episode, unspecified; J44.9 Chronic obstructive pulmonary disease, unspecified; E11.9 Type 2 diabetes mellitus without complications; I10 Essential (primary) hypertension; K21.9 Gastro-esophageal reflux disease without esophagitis; F17.210 Nicotine dependence, cigarettes, uncomplicated; Z79.84 Long term (current) use of oral hypoglycemic drugs; Z79.82 Long term (current) use of aspirin; Z79.899 Other long term (current) drug therapy; Z82.49 Family history of ischemic heart disease and other diseases of the circulatory system; Z83.3 Family history of diabetes mellitus; Z98.890 Other specified postprocedural states; Z88.2 Allergy status to sulfonamides; Z88.1 Allergy status to other antibiotic agents; Z88.0 Allergy status to penicillin
CPT/HCPCS: 36415; 71010; 80048; 80061; 80076; 81003; 82553; 82947; 83036; 83735; 84443; 84484; 85025; 85027; 85610; 85730; 93005; 94640; 96374; 99285; C1769; C1887; C1894; G0378; J1644; J2250; J2370; J2930; J3010

== ENCOUNTER 2016-09-03 11:23 | Emergency (ER) | payer MEDICARE, OTHER ==
--- NOTE | ~2016-09-03 | CR72 ---
[facility] A Service of [facility] RADIOLOGY TEXT RESULTS PATIENT: RUI MARTINEZ LOCATION: [facility] : 58 UNIT #: [id number] AGE: [address]: Jeramy Montana MD SEX: F ORDER DR: [id number] [facility] [address] [place], [place] [address] [id number] E MR#: [id number] Acc #: [id number] NAME: RUI MARTINEZ. : 1960 SEX: F STUDY DATE/TIME: 09/03/2016 12:46 UNIT: [facility] ROOM: STUDY DESCRIPTION: CR Chest Single View Portable Attending Physician: Francis Montana M.D. Ordering Physician: Antonio Ireland M.D. Primary Care Physician: Lakia Roth M.D. MEDICAL IMAGING REPORT This report is preliminary unless electronic signature is present EXAM Chest, portable, 09/03/2016, 1246 hours. CLINICAL HISTORY 56-year-old with cough and wheezing today. History of hypertension, diabetes. COMPARISON 08/03/2016 FINDINGS Portable upright chest demonstrates normal cardiac, mediastinal, and hilar contours. Lung volumes are slightly low but the lungs are clear. There is no effusion or pneumothorax. IMPRESSION Slightly low lung volumes. No acute cardiopulmonary findings. Dictated by... Azeb Malloy M.D. THIS IS AN ELECTRONICALLY VERIFIED REPORT Azeb Malloy M.D. at 09/06/2016 9:23 AM MÓNICA/ginger TD: 09/03/2016 15:25 JOB #: [id number] MEDICAL IMAGING REPORT Page 1 of 1 COPY
--- NOTE | ~2016-09-03 | EKG ---
PATIENT: RUI MARTINEZ UNIT #: [id number] Ventricular Rate: 99 BPM Atrial Rate: 99 BPM P-R Interval: 130 ms QRS Duration: 82 ms Q-T Interval: 388 ms QTC Calculation(Bezet): 497 ms P [place]: 59 degrees Calculated R [place]: 59 degrees Calculated T [place]: 36 degrees Diagnosis Line: Normal sinus rhythm Diagnosis Line: T wave abnormality, consider anterior ischemia Diagnosis Line: Prolonged QT Diagnosis Line: Abnormal ECG Diagnosis Line: When compared with ECG of 21-JUL-2016 06:03, Diagnosis Line: No significant change was found Diagnosis Line: Confirmed by DENG CASTILLO MD ([id number]) on Diagnosis Line: 09/04/2016 4:27:18 PM INTERPRETING MD: JONATHAN IRENE
[2016-09-03 14:00] LABS: URINE SOURCE CLEAN CATCH
[2016-09-03 14:05] LABS: BASOPHIL# 0.1 X10e3 (0-0.3); BASOPHIL% 0.5 % (0-2.5); EOSINOPHIL% 0.3 % (0.0-7.0); HEMATOCRIT 44.5 % (35.0-45.0); HEMOGLOBIN 14.7 gm/dL (12.0-16.0); LYMPHOCYTE# 3.8 X10e3 (1.0-3.5); LYMPHOCYTE% 27.3 % (17.0-45.0); MEAN CELL VOLUME 83.4 FL (83-96); MEAN CORPUSCULAR HEMOGLOBIN 27.6 PG (28-34); MEAN CORPUSCULAR HGB CONC 33.1 g/dL (30-36); MEAN PLATELET VOLUME 7.1 FL (6.5-11.5); NEUTROPHIL# 9.1 X10e3 (1.5-7.1); NEUTROPHIL% 64.9 % (40-75); PLATELET COUNT 372 X10e3 (140-420); RED BLOOD COUNT 5.33 X10e (3.90-5.30); RED CELL DISTRIBUTION WIDTH 16.9 % (11.0-15.5)
[2016-09-03 14:08] LABS: DIFF IND NO
[2016-09-03 14:18] LABS: URINE APPEARANCE SL HAZY; URINE COLOR YELLOW
[2016-09-03 14:19] LABS: URINE BILIRUBIN NEG (NEG); URINE BLOOD 4+ (NEG); URINE GLUCOSE NORM (NEG); URINE KETONE 2+ (NEG); URINE LEUKOCYTE ESTERASE 3+ (NEG); URINE NITRATE NEG (NEG); URINE PROTEIN NEG (NEG); URINE UROBILINOGEN NORM (NEG)
[2016-09-03 14:22] LABS: CULTURE INDICATED? YES; URBCS1 AUWI 0-2 /[HPF] (0-2); URINE BACTERIA AUWI 2+ (NEGATIVE); URINE SQUAMOUS EPITHELIAL CELL MODERATE /[HPF]
[2016-09-03 14:35] LABS: ALBUMIN SERUM 4.4 g/dL (3.5-5.0); ALKALINE PHOSPHATASE 76 U/L (32-92); ALT (SGPT) 15 U/L (10-40); AST (SGOT) 22 U/L (10-42); BILIRUBIN, DIRECT 0.1 mg/dL (0.0-0.2); BILIRUBIN,INDIRECT 0.8 mg/dL (0.0-0.9); BILIRUBIN,TOTAL 0.9 mg/dL (0.2-2.0); BLOOD UREA NITROGEN 15 mg/dL (9-23); BUN/CREATININE RATIO 16.66; CALCIUM SERUM 9.4 mg/dL (8.4-10.2); CARBON DIOXIDE 19 mmol/L (22-31); CHLORIDE 98 mmol/L (100-111); CREATININE SERUM 0.9 mg/dL (0.6-1.4); GLUCOSE FASTING 92 mg/dL (70-110); POTASSIUM 3.5 mmol/L (3.5-5.1); SALICYLATE <4.0 mg/dL; SODIUM 131 mmol/L (135-145)
[2016-09-03 14:37] LABS: ACETAMINOPHEN <10 ug/mL; ALCOHOL BLOOD <5 mg/dL (0)
[2016-09-03 16:08] LABS: POC - CKMB 5.8 ng/mL (0.0-7.9); POC - TROPONIN <0.05 ng/mL (<=0.05)
== END 2016-09-03 18:45 | disposition home or self-care (01) ==
LOC: CED 11:23
PROVIDERS: Emergency Medicine
DX: I10 Essential (primary) hypertension (principal); J44.9 Chronic obstructive pulmonary disease, unspecified; F41.9 Anxiety disorder, unspecified; F17.210 Nicotine dependence, cigarettes, uncomplicated; Z88.0 Allergy status to penicillin; Z88.1 Allergy status to other antibiotic agents; Z79.899 Other long term (current) drug therapy; F20.0 Paranoid schizophrenia
CPT/HCPCS: 36415; 71010; 80048; 80076; 81003; 82553; 82947; 84484; 85025; 87086; 87088; 87186; 93005; 96361; 96374; 99284; G0480; J2930

== ENCOUNTER 2016-09-05 07:26 | Emergency (ER) | payer MEDICARE, OTHER ==
--- NOTE | ~2016-09-05 | EKG ---
PATIENT: RUI MARTINEZ UNIT #: [id number] Ventricular Rate: 83 BPM Atrial Rate: 83 BPM P-R Interval: 130 ms QRS Duration: 84 ms Q-T Interval: 418 ms QTC Calculation(Bezet): 491 ms P [place]: 48 degrees Calculated R [place]: 24 degrees Calculated T [place]: 34 degrees Diagnosis Line: Normal sinus rhythm Diagnosis Line: Prolonged QT Diagnosis Line: Abnormal ECG Diagnosis Line: When compared with ECG of 03-SEP-2016 12:39, Diagnosis Line: No significant change was found Diagnosis Line: Confirmed by JAMI GALICIA MD ([id number]) on Diagnosis Line: 09/08/2016 8:50:36 AM INTERPRETING MD: FRIDA IRENE
== END 2016-09-05 09:29 | disposition home or self-care (01) ==
LOC: SED 07:26
DX: F41.9 Anxiety disorder, unspecified (principal); J44.9 Chronic obstructive pulmonary disease, unspecified; F17.200 Nicotine dependence, unspecified, uncomplicated; Z88.0 Allergy status to penicillin; Z88.1 Allergy status to other antibiotic agents
CPT/HCPCS: 93005; 99283

== ENCOUNTER 2016-09-09 09:06 | Inpatient (IN) | payer MEDICARE, OTHER ==
--- NOTE | ~2016-09-09 | CT16 ---
[facility] A Service of [facility] RADIOLOGY TEXT RESULTS PATIENT: RUI MARTINEZ LOCATION: [facility] 302- : 58 UNIT #: [id number] AGE: [address]: Manuela Alarcon MD SEX: F ORDER DR: [id number] [facility] [address] [place], [place] [address] [id number] I MR#: [id number] Acc #: [id number] NAME: RUI MARTINEZ. : 1960 SEX: F STUDY DATE/TIME: 09/09/2016 17:43 UNIT: A U ROOM: [facility] STUDY DESCRIPTION: CT Angio Chest for PE Attending Physician: Brittney Ibrahim M.D. Ordering Physician: Ella Dent M.D. Primary Care Physician: Lakia Roth M.D. MEDICAL IMAGING REPORT This report is preliminary unless electronic signature is present EXAM Chest CT with contrast with CT angiography HISTORY Shortness breath onset today. TECHNIQUE Axial imaging was obtained through the chest with contrast. 80 mL of Isovue was used. CT angiography was performed with thick sliding MIPs in the sagittal and coronal projections. This CT exam was performed with one or more of the following radiation dose reduction techniques: automatic exposure control, adjustment of mA and/or kV according to patient size, and iterative reconstruction. FINDINGS Chest images at mediastinal window show no pulmonary artery filling defects to suggest pulmonary embolism. There are no enlarged mediastinal or hilar lymph nodes. There is no evidence of pleural or pericardial fluid. The CT angiographic images also show no evidence of emboli. There is no evidence of aortic dissection. Lung window imaging shows both lungs to be clear. Mild chronic volume loss is noted at the left base. This is unchanged from previous exam. There is 1 small new nonspecific infiltrate in the left upper lobe. It is ground-glass in nature and measures 1 cm in diameter. Consider a followup scan in 6 months to recheck this area for resolution. No other changes are noted. IMPRESSION 1. No evidence pulmonary embolism. 2. Small new ground-glass infiltrate in the left upper lobe posteriorly [facility] A Service of [facility] RADIOLOGY TEXT RESULTS PATIENT: RUI MARTINEZ LOCATION: [facility] 302-01 : 58 UNIT #: [id number] AGE: [address]: Manuela Alarcon MD SEX: F ORDER DR: measuring about 1 cm in diameter. It was not seen on the previous scan from 07/01/2016. It is likely an area of inflammatory change. Consider followup scan in 6 months without contrast to recheck this. There is also mild chronic volume loss at the left lung base. No suspicion of pneumonia. Dictated by... Rush Helm M.D. THIS IS AN ELECTRONICALLY VERIFIED REPORT Rush Helm M.D. at 09/10/2016 4:29 PM IRIS/latoya TD: 09/09/2016 20:39 JOB #: [id number] MEDICAL IMAGING REPORT Page 1 of 1 COPY
--- NOTE | ~2016-09-09 | CR72 ---
[facility] A Service of [facility] RADIOLOGY TEXT RESULTS PATIENT: RUI MARTINEZ LOCATION: [facility] : 58 UNIT #: [id number] AGE: [address]: Manuela Alarcon MD SEX: F ORDER DR: [id number] [place] [id number] [facility] [place], [place] [address] [id number] E MR#: [id number] Acc #: [id number] NAME: RUI MARTINEZ. : 1960 SEX: F STUDY DATE/TIME: 09/09/2016 11:13 UNIT: LIN ROOM: STUDY DESCRIPTION: CR Chest Single View Portable Attending Physician: Ella Dent M.D. Ordering Physician: Ella Dent M.D. Primary Care Physician: Lakia Roth M.D. MEDICAL IMAGING REPORT This report is preliminary unless electronic signature is present EXAM AP portable chest Date: 09/09/2016 at 11:13 HISTORY A 56-year-old female with complaints of shortness of breath today. Hearing voices. Additional history of diabetes, hypertension, AIDS, current smoker. COMPARISON AP portable chest 09/03/2016 FINDINGS Clear lungs. Normal heart size. No pleural effusion or pneumothorax. Degenerative endplate spurring in the thoracic spine. Mild degenerative changes of the shoulder joints. IMPRESSION No acute cardiopulmonary findings. Dictated by... Maryana Echeverria M.D. THIS IS AN ELECTRONICALLY VERIFIED REPORT Maryana Echeverria M.D. at 09/10/2016 2:22 PM DEIRDRE/latoya TD: 09/09/2016 12:44 JOB #: [id number] [facility] A Service [facility] RADIOLOGY TEXT RESULTS PATIENT: RUI MARTINEZ LOCATION: [facility] 302 : 58 UNIT #: [id number] AGE: [address]: Manuela Alarcon MD SEX: F ORDER DR: MEDICAL IMAGING REPORT Page 1 of 1 COPY
--- NOTE | ~2016-09-09 | HP ---
Unit #: [id number] #: [id number] Patient: RUI MARTINEZ [id number] [facility]. [place], [place] [address] [id number] MR#: [id number] NAME: RUI MARTINEZ. ROOM: Age: 56 Sex: F Admission Date: 09/09/2016 : 1960 Attending Physician: Ella Dent M.D. Primary Care Physician: Lakia Roth M.D. HISTORY AND PHYSICAL CHIEF COMPLAINT Refused inpatient treatment at [facility]. HISTORY OF PRESENT ILLNESS The patient is a 56-year-old female with past medical history of schizophrenia, nonsustained ventricular tachycardia, hypertension, hyperlipidemia, COPD, tobacco abuse, diabetes, hypothyroidism, who presented to the emergency department for evaluation of the above. History is obtained from chart review and discussion with the ER staff due to the patient's altered mental status. History is also obtained from the patient's sister, Tamera Haile, who is at bedside. The patient was hospitalized at [facility] July 202016 for nonsustained ventricular tachycardia. She was discharged home on a LifeVest. Risperdal was discontinued due to a prolonged QT. She has been following with Dr. Herbert. Family states that she was actually supposed to see Dr. Herbert today. Apparently the patient was seen here at the [facility] emergency department on September 05, 2016 for anxiety and was discharged home. Family apparently took out a mental inquest warrant. They took the patient to [facility] yesterday and inpatient treatment was recommended but the patient refused. The patient's sister states that she has had auditory hallucinations for at least the past couple of weeks. She states that she has stopped eating and bathing. She has not had any sleep in several days. She has been somewhat agitated at home. In the emergency department the patient received a total of 20 mg of Geodon as well as 2 mg of Ativan. Potassium was noted to be 2.5. She was placed on a 72-hour hold by the emergency room physician. She is being admitted to [facility] for evaluation and further treatment. PAST MEDICAL HISTORY 1. Admission to [facility] July 202016 for nonsustained ventricular tachycardia. She also was noted to have prolonged QT. Risperdal was discontinued. A LifeVest was placed. She also underwent cardiac catheterization during that admission on July 21, 2016. It showed angiographically normal coronary arteries and an ejection fraction of 50% to 55%. 2. Hypertension. 3. Hyperlipidemia. 4. Chronic obstructive pulmonary disease with continued tobacco abuse. 5. Diabetes. Unit #: [id number] #: [id number] Patient: RUI MARTINEZ 6. Hypothyroidism. 7. Schizophrenia. PAST SURGICAL HISTORY 1. Appendectomy. 2. Surgery for uterine fibroids. 3. Toe surgery. 4. Colonoscopy. 5. Cardiac catheterization July 21, 2016 showed angiographically normal coronary arteries and ejection fraction of 50% to 55%. SOCIAL HISTORY The patient lives with her mother. She continues to smoke at least a pack of cigarettes daily. There is no alcohol or illicit drug use. FAMILY HISTORY Family history is notable for her mother having coronary artery disease. Her dad had diabetes and coronary artery disease. ALLERGIES Penicillin, clarithromycin, sulfa. HOME MEDICATIONS 1. Zoloft 100 mg daily. 2. Remeron 45 mg q.h.s. 3. Pravastatin 40 mg daily. 4. Synthroid 25 mcg before breakfast. 5. Fish oil 1000 mg b.i.d. 6. Metformin 1000 mg q.a.m. and 500 q.p.m. 7. BuSpar 30 mg b.i.d. 8. Advair 250/50 inhaled b.i.d. 9. Aspirin 81 mg daily. 10. Toprol-XL 12.5 mg b.i.d. 11. Combivent q.i.d. p.r.n. 12. [place]-3 1000 mg daily. 13. Abilify 5 mg q.h.s. REVIEW OF SYSTEMS A complete review of systems is unobtainable from the patient due to altered mental status but negative except as indicated in the HPI. The patient's sister states that she has lost about 13 pounds over the past two weeks. DIAGNOSTIC STUDIES CARDIOVASCULAR: EKG shows sinus tachycardia with a rate of 110 beats per minute. IMAGING: CT of the chest PE protocol showed left ground-glass opacity. The radiologist specifically said it did not appear to be pneumonia but recommended follow-up imaging. LABORATORY: Urine tox screen is negative. Urinalysis is notable for 1+ blood with 0 to 2 red blood cells. Lactic acid is 1. Comprehensive metabolic panel notable for potassium of 2.5, chloride is 97, alcohol level is less than 5. INR is 1. Complete blood count notable for white blood cell count of 11.7. There is a urine culture from September 03 that grew 50,000 to 60,000 Citrobacter that was sensitive to Bactrim, cefepime and tobramycin. Again urinalysis today is essentially negative. Unit #: [id number] #: [id number] Patient: RUI MARTINEZ PHYSICAL EXAMINATION VITAL SIGNS: Temperature 98.3. Pulse 112. Respirations 16. Blood pressure 136/72. Oxygen saturation 100% on room air. GENERAL: The patient is a female who is lethargic but moving all extremities. HEENT: The head is atraumatic. Mucous membranes are dry. NECK: Neck is supple. Trachea is midline. CARDIOVASCULAR: Regular rate and rhythm. LUNGS: Lungs demonstrate decreased breath sounds bilaterally. Breathing is not labored. ABDOMEN: Abdomen is soft, nontender, with bowel sounds present all four quadrants. EXTREMITIES: Nontender, with no pedal edema. NEUROLOGIC: The patient is lethargic. She was apparently oriented x3 during last admission. PSYCHIATRIC: The patient was quite agitated in the emergency department per their documentation, having active hallucinations. SKIN: Skin of examined areas is warm and dry. ASSESSMENT The patient is a 56-year-old female with: 1. Auditory hallucinations. 2. History of schizophrenia. 3. Hypokalemia. 4. History of nonsustained ventricular tachycardia, followed by Dr. Herbert. 5. Hypertension. 6. Hyperlipidemia. 7. Chronic obstructive pulmonary disease with continued tobacco abuse. 8. Diabetes. 9. Hypothyroidism. 10. Lung opacity. PLAN 1. Admit for observation to intermediate level. 2. N.p.o. until awake and passes bedside swallow. 3. Normal saline at 125 mL an hour. 4. Sitter. 5. Consult Dr. Nuñez. 6. The patient has been placed on a 72-hour hold by the emergency room physician. 7. Psych medications per Dr. Nuñez. 8. Bedrest. 9. Fall precautions. 10. Check magnesium level. 11. Potassium and magnesium protocol. 12. Serial cardiac enzymes. 13. Supplemental oxygen. 14. P.r.n. DuoNeb. 15. Check CPK, TSH, B12 and folate. 16. Repeat labs in the morning including magnesium. 17. Neuro checks. 18. Low-dose sliding-scale insulin with Accu-Cheks. 19. SCDs for DVT prophylaxis. Unit #: [id number] #: [id number] Patient: RUI MARTINEZ Dictated by Shreyas Barrera/waldo TD: 09/09/2016 20:10 JOB #: [id number] HISTORY AND PHYSICAL Page 1 of 1 X Brittney Ibrahim MD X HISTORY AND PHYSICAL
--- NOTE | ~2016-09-09 | DS ---
Unit #: [id number] #: [id number] Patient: RUI MARTINEZ [id number] [facility]. [place], [place] [address] [id number] I MR#: [id number] NAME: RUI MARTINEZ. ROOM: 302 Age: 56 Sex: F Admission Date: 09/11/2016 : 1960 Discharge Date: Attending Physician: Manuela Alarcon M.D. Primary Care Physician: Lakia Roth M.D. DISCHARGE SUMMARY DIAGNOSES ON ADMISSION 1. Auditory hallucinations. 2. Hypokalemia. DIAGNOSES ON DISCHARGE 1. Hypokalemia resolved. 2. Auditory hallucinations. 3. Schizophrenia. 4. Hypothyroidism. 5. Type 2 diabetes mellitus. 6. COPD. 7. Continued tobacco abuse. 8. Hypertension. 9. Hyperlipidemia. CONSULTANTS Dr. Nuñez in psychiatry consultation. LABS AND PROCEDURES DONE 1. Patient's creatinine is 0.6, sodium 138, potassium 3.2, AST and ALT is within normal limits. 2. TSH is 1.42. 3. WBC is 9.7, hemoglobin 11.7, platelet count is 312. 4. Blood culture did not reveal any growth so far. 5. CT scan of chest revealed no evidence of PE. There was a new small ground glass infected left upper lobe posteriorly, which was 1 cm diameter and was not seen previously. It is likely an area of inflammatory change. A followup scan in six months was recommended. 6. Urine drug screen was negative. 7. Urinalysis was negative. HOSPITAL COURSE 56-year-old female was admitted to [facility] with auditory hallucinations and hypokalemia. Details are as per admission H and P. The patient did not reveal any infectious cause. She was seen by Dr. Nuñez in consult. It was thought her symptoms are related to her psychiatric illness and patient will be transferred to [facility]. I have discussed extensively with patient's sister Terra who stated that patient is noncompliant with her medications and she had taken her to [facility] in past and patient has signed her out. She has even received an inquest from the court on patient. She feels patient is not safe to go home and she will not take care of herself. Tobacco abuse: Patient is encouraged to quit smoking. Unit #: [id number] #: [id number] Patient: RUI MARTINEZ Hypokalemia: Patient was given potassium and potassium level is 3.2 today. We will replete her potassium. Will also start her on potassium pill. DISPOSITION The patient will be transferred to [facility]. The plan was discussed with Dr. Nuñez. MEDICATIONS ON DISCHARGE 1. DuoNeb mini-neb treatment q.4 hours p.r.n. 2. Advair Diskus 250/50 one inhalation daily. 3. Metformin 500 mg p.o. daily. 4. Pravachol 40 mg p.o. daily. 5. Toprol XL 12.5 mg p.o. b.i.d. 6. Metformin 500 mg p.o. daily. 7. Enteric coated aspirin 81 mg p.o. daily. 8. Fish oil, one capsule daily. 9. Synthroid 0.25 mg p.o. daily. 10. Ativan 0.25 mg p.o. q.4 hours severe agitation. 11. Nicotine patch 14 mg 1 patch every morning. Please make a note that the medications are as per med reconciliation form and if there is any discrepancy, a description of these follow the med reconciliation form. I called and discussed the plan with Dr. Nuñez and also with patient's sister, Terra. Dictated by... Shreyas Villela TD: 09/12/2016 13:22 JOB #: [id number] CC: Juan Antonio Nuñez M.D. DISCHARGE SUMMARY Page 1 of 1 X Manuela Alarcon MD DISCHARGE SUMMARY
--- NOTE | ~2016-09-09 | CO ---
Unit #: [id number] #: [id number] Patient: CRYSTAL CHARLOTN [id number] [facility]. [place], [place] [address] [id number] I MR#: [id number] NAME: CRYSTAL CHARLTON. ROOM: 302 Age: 56 Sex: F Admission Date: 09/11/2016 : 1960 Attending Physician: Manuela Alarcon M.D. Primary Care Physician: Lakia Roth M.D. Consultation Date: 09/10/2016 CONSULTATION REPORT REASON FOR CONSULTATION Confusion and history of depression. HISTORY OF PRESENT ILLNESS Ms. Crystal Charlton is a 56-year-old female, seen in room 302, bed 1 on 09/10/2016 at [facility]. The patient has a sitter, dressed casually in hospital attire, somewhat anxious, nervous, rocking, seemed confused, guarded, disorganized speech and thought process. The patient's vital signs; temperature 97.6, pulse 77, respirations 16, blood pressure 133/75, oxygen saturation 98%. The patient was unable to give any relevant history at this time. Information was obtained from sitter, chart, and from the patient's nursing staff. The patient refused inpatient treatment at [facility] and subsequently transferred to [facility]. The patient has nonsustained ventricular tachycardia, history of schizophrenia, prolonged QT interval. The patient was admitted in 07/2016 with nonsustained ventricular tachycardia. The patient had a prolonged QT interval and a LifeVest was placed. The patient was on Remeron, BuSpar, and Abilify at the time of admission. PAST PSYCHIATRIC HISTORY Remarkable for history of depression, anxiety, schizophrenia, history of previous admission at [facility]. MEDICAL HISTORY Remarkable for history of prolonged QT interval, hypertension, hyperlipidemia, COPD, diabetes, hypothyroidism, and schizophrenia. MEDICATIONS Zoloft 100 mg daily, Remeron 45 mg daily, pravastatin, Synthroid, fish oil, metformin, BuSpar 30 mg daily, Advair, aspirin, Toprol, Combivent, omega-3, Abilify 5 mg daily. FAMILY HISTORY AND SOCIAL HISTORY The patient has a good support system from family. No known history of any abuse. No known history of any substance abuse. REVIEW OF SYSTEMS Complete review of systems is unremarkable except as mentioned above. MENTAL STATUS EXAMINATION Vital signs; please see above. General appearance; the patient dressed casually in hospital attire. The patient was sitting in her bed, rocking back and forth, unable to give coherent history. Attention span and Unit #: [id number] #: [id number] Patient: CRYSTAL CHARLTON concentration, poor. Speech, somewhat rambling. Oriented in self. Mood and affect, labile. Thought process, circumstantial. Thought content; guarded, paranoid, but denied any thoughts of harming self or others. Recent and remote memory, poor. Language, fair. Fund of knowledge, poor. Insight and judgment, impaired. DIAGNOSES Psychiatric: Delirium F05; psychosis, not otherwise specified, F29.0; major depressive disorder, recurrent, severe, F33.2; history of schizophrenia, chronic, paranoid type, F20.0. Secondary diagnosis: Deferred. Medical diagnosis: Please refer to H and P. Stressors: Psychosocial stressor. ASSESSMENT AND PLAN 1. Supportive psychotherapy and psychoeducation provided to the patient, but the patient was unable to comprehend much. 2. Advised to continue with current medication. Advised to hold her psychotropic medication at this time until we are clear about her QT interval, and in the meantime, advised Ativan 0.5 mg q.4 p.r.n. and 0.5 mg now dose. We will continue to follow. If needed, consider further adjustment of medication. Please feel free to call if any question, telephone #[phone]. Dictated by... Shreyas Boateng/juany TD: 09/11/2016 13:46 JOB #: [id number] CONSULTATION REPORT Page 1 of 1 X Juan Antonio Nuñez MD X CONSULTATION REPORT
--- NOTE | ~2016-09-09 | EKG ---
PATIENT: RUI MARTINEZ UNIT #: [id number] Ventricular Rate: 110 BPM Atrial Rate: 110 BPM P-R Interval: 130 ms QRS Duration: 88 ms Q-T Interval: 368 ms QTC Calculation(Bezet): 498 ms P [place]: 68 degrees Calculated R [place]: 43 degrees Calculated T [place]: 49 degrees Diagnosis Line: Sinus tachycardia Diagnosis Line: Nonspecific T wave abnormality Diagnosis Line: Abnormal ECG Diagnosis Line: When compared with ECG of 05-SEP-2016 08:41, Diagnosis Line: Nonspecific T wave abnormality, worse in Anterior Diagnosis Line: leads Diagnosis Line: Confirmed by KEYONA BARGER MD ([id number]) on 09/09/2016 Diagnosis Line: 6:09:57 PM INTERPRETING MD: DENITA IRENE
[2016-09-09] MEDS ORDERED: PATIENT'S PHARMACY (11:06)
[2016-09-09] MEDS ORDERED: OMEGA 3 1,0001 EACH PO (11:16)
[2016-09-09] MEDS ORDERED: COMBIVENT RESPIM4 GM PO (11:16)
[2016-09-09] MEDS ORDERED: ABILIFY5 MG PO (11:21)
[2016-09-09 11:58] LABS: URINE SOURCE CLEAN CATCH
[2016-09-09 12:14] LABS: URINE APPEARANCE CLEAR; URINE BILIRUBIN NEG (NEG); URINE BLOOD 1+ (NEG); URINE COLOR YELLOW; URINE GLUCOSE NEG (NEG); URINE KETONE TRACE (NEG); URINE LEUKOCYTE ESTERASE NEG (NEG); URINE NITRATE NEG (NEG); URINE PH 6.5 (5-8); URINE PROTEIN NEG (NEG); URINE SPECIFIC GRAVITY 1.003 (1.003-1.035); URINE UROBILINOGEN 0.2 MG/DL (NEG)
[2016-09-09 12:31] LABS: AMPHETAMINE NEG (NEG); BARBITURATES NEG (NEG); BENZODIAZEPINES NEG (NEG); COCAINE NEG (NEG); MARIJUANA NEG (NEG); OPIATES NEG (NEG); TRICYCLIC ANTIDEPRESSANTS NEG (NEG); U METHADONE NEG (NEG)
[2016-09-09 12:35] LABS: BASOPHIL# 0.1 X10e3 (0-0.3); EOSINOPHIL# 0.1 X10e3 (0-0.7); EOSINOPHIL% 0.7 % (0.0-7.0); HEMATOCRIT 45.5 % (35.0-45.0); HEMOGLOBIN 14.9 gm/dL (12.0-16.0); LYMPHOCYTE# 3.7 X10e3 (1.0-3.5); LYMPHOCYTE% 31.9 % (17.0-45.0); MEAN CELL VOLUME 82.9 FL (83-96); MEAN CORPUSCULAR HEMOGLOBIN 27.1 PG (28-34); MEAN CORPUSCULAR HGB CONC 32.7 g/dL (30-36); MEAN PLATELET VOLUME 7.1 FL (6.5-11.5); MONOCYTE# 1.1 X10e3 (0-1.0); MONOCYTE% 9.1 % (3.0-12.0); NEUTROPHIL# 6.7 X10e3 (1.5-7.1); NEUTROPHIL% 57.3 % (40-75); PLATELET COUNT 378 X10e3 (140-420); RED BLOOD COUNT 5.49 X10e (3.90-5.30); RED CELL DISTRIBUTION WIDTH 16.4 % (11.0-15.5); WHITE BLOOD COUNT 11.7 X10e3 (4.0-10.5)
[2016-09-09 12:40] LABS: URBCS1 AUWI 0-2 /[HPF] (0-2); URINE BACTERIA AUWI NEG (NEGATIVE); URINE SQUAMOUS EPITHELIAL CELL NONE SEEN /[HPF]; UWBCS1 AUWI 0-2 (0-5)
[2016-09-09 12:41] LABS: DIFF IND NO
[2016-09-09 12:57] LABS: PARTIAL THROMBOPLASTIN TIME 26.6 SECONDS (23.5-31.3); PROTHROMBIN TIME (PATIENT) 10.3 SECONDS (9.6-11.5)
[2016-09-09 13:07] LABS: ALBUMIN SERUM 4.7 g/dL (3.5-5.0); ALKALINE PHOSPHATASE 79 U/L (32-92); ALT (SGPT) 24 U/L (10-40); AST (SGOT) 36 U/L (10-42); BILIRUBIN, DIRECT 0.1 mg/dL (0.0-0.2); BILIRUBIN,INDIRECT 0.8 mg/dL (0.0-0.9); BILIRUBIN,TOTAL 0.9 mg/dL (0.2-2.0); BLOOD UREA NITROGEN 11 mg/dL (9-23); BUN/CREATININE RATIO 15.71; CALCIUM SERUM 9.8 mg/dL (8.4-10.2); CARBON DIOXIDE 22 mmol/L (22-31); CHLORIDE 97 mmol/L (100-111); CREATININE SERUM 0.7 mg/dL (0.6-1.4); GLOM FILT RATE Estimated 96.2 mL/min (>60); GLUCOSE FASTING 105 mg/dL (70-110); PROTEIN TOTAL SERUM 8.2 g/dL (6.0-8.3); SODIUM 136 mmol/L (135-145)
[2016-09-09 13:09] LABS: ALCOHOL BLOOD <5 mg/dL (0); POTASSIUM 2.5 mmol/L (3.5-5.1)
[2016-09-09 13:10] LABS: CULTURE INDICATED? NO
[2016-09-09 20:52] LABS: MAGNESIUM 1.8 mg/dL (1.6-3.0)
[2016-09-09 21:02] LABS: FOLATE (FOLIC ACID) >23.6 ng/mL (>5.8)
[2016-09-09 21:09] LABS: %MB 2.5 % (0.0-4.0); MB 6.8 ng/ml
[2016-09-10 03:20] LABS: BASOPHIL# 0.1 X10e3 (0-0.3); BASOPHIL% 0.8 % (0-2.5); EOSINOPHIL# 0.2 X10e3 (0-0.7); HEMATOCRIT 42.9 % (35.0-45.0); LYMPHOCYTE# 4.9 X10e3 (1.0-3.5); LYMPHOCYTE% 44.8 % (17.0-45.0); MEAN CELL VOLUME 84.9 FL (83-96); MEAN CORPUSCULAR HEMOGLOBIN 27.7 PG (28-34); MEAN CORPUSCULAR HGB CONC 32.7 g/dL (30-36); MEAN PLATELET VOLUME 7.4 FL (6.5-11.5); MONOCYTE# 1.2 X10e3 (0-1.0); MONOCYTE% 11.2 % (3.0-12.0); NEUTROPHIL# 4.5 X10e3 (1.5-7.1); NEUTROPHIL% 41.2 % (40-75); PLATELET COUNT 337 X10e3 (140-420); RED BLOOD COUNT 5.05 X10e (3.90-5.30); RED CELL DISTRIBUTION WIDTH 16.8 % (11.0-15.5); WHITE BLOOD COUNT 10.9 X10e3 (4.0-10.5)
[2016-09-10 03:21] LABS: DIFF IND NO
[2016-09-10 03:53] LABS: ALBUMIN SERUM 3.8 g/dL (3.5-5.0); BILIRUBIN,TOTAL 0.6 mg/dL (0.2-2.0); BUN/CREATININE RATIO 12.85; CALCIUM SERUM 8.9 mg/dL (8.4-10.2); CREATININE SERUM 0.7 mg/dL (0.6-1.4); GLOM FILT RATE Estimated 96.2 mL/min (>60); MAGNESIUM 1.7 mg/dL (1.6-3.0); POTASSIUM 3.7 mmol/L (3.5-5.1); PROTEIN TOTAL SERUM 6.8 g/dL (6.0-8.3)
[2016-09-10 04:09] LABS: %MB 2.9 % (0.0-4.0); MB 5.3 ng/ml
[2016-09-10 11:20] LABS: %MB 3.1 % (0.0-4.0); MB 4.5 ng/ml
[2016-09-11 05:58] LABS: HEMATOCRIT 38.8 % (35.0-45.0); HEMOGLOBIN 12.7 gm/dL (12.0-16.0); MEAN CELL VOLUME 83.9 FL (83-96); MEAN CORPUSCULAR HEMOGLOBIN 27.5 PG (28-34); MEAN CORPUSCULAR HGB CONC 32.7 g/dL (30-36); MEAN PLATELET VOLUME 7.2 FL (6.5-11.5); RED BLOOD COUNT 4.62 X10e (3.90-5.30); RED CELL DISTRIBUTION WIDTH 16.3 % (11.0-15.5); WHITE BLOOD COUNT 9.6 X10e3 (4.0-10.5)
[2016-09-11 06:44] LABS: BUN/CREATININE RATIO 11.66; CALCIUM SERUM 8.4 mg/dL (8.4-10.2); CREATININE SERUM 0.6 mg/dL (0.6-1.4); GLOM FILT RATE Estimated 101.2 mL/min (>60)
[2016-09-11 07:09] LABS: POTASSIUM 2.4 mmol/L (3.5-5.1)
[2016-09-12 04:33] LABS: BASOPHIL# 0.1 X10e3 (0-0.3); BASOPHIL% 0.5 % (0-2.5); EOSINOPHIL# 0.3 X10e3 (0-0.7); EOSINOPHIL% 2.8 % (0.0-7.0); HEMATOCRIT 35.9 % (35.0-45.0); HEMOGLOBIN 11.7 gm/dL (12.0-16.0); LYMPHOCYTE# 3.9 X10e3 (1.0-3.5); LYMPHOCYTE% 40.1 % (17.0-45.0); MEAN CELL VOLUME 83.4 FL (83-96); MEAN CORPUSCULAR HEMOGLOBIN 27.1 PG (28-34); MEAN CORPUSCULAR HGB CONC 32.4 g/dL (30-36); MEAN PLATELET VOLUME 7.6 FL (6.5-11.5); MONOCYTE# 0.9 X10e3 (0-1.0); MONOCYTE% 9.3 % (3.0-12.0); NEUTROPHIL# 4.6 X10e3 (1.5-7.1); NEUTROPHIL% 47.3 % (40-75); PLATELET COUNT 312 X10e3 (140-420); RED BLOOD COUNT 4.31 X10e (3.90-5.30); RED CELL DISTRIBUTION WIDTH 16.5 % (11.0-15.5); WHITE BLOOD COUNT 9.7 X10e3 (4.0-10.5)
[2016-09-12 04:35] LABS: DIFF IND NO
[2016-09-12 04:57] LABS: BUN/CREATININE RATIO 8.33; CALCIUM SERUM 8.1 mg/dL (8.4-10.2); CREATININE SERUM 0.6 mg/dL (0.6-1.4); GLOM FILT RATE Estimated 101.2 mL/min (>60); MAGNESIUM 1.6 mg/dL (1.6-3.0); POTASSIUM 3.2 mmol/L (3.5-5.1)
== END 2016-09-12 19:48 | DRG 641 ==
LOC: CED 09:06 → CEDOF 19:45 → C3A PCU 19:45 → CEDOF 20:03 → C3A PCU 20:03 → CED 20:03 → C3A PCU 20:03 → CEDOF 20:28 → C3A PCU 20:28 → CEDOF 09-11 10:35 → C3A PCU 09-11 10:35 → CED 09-11 10:35 → C3A PCU 09-12 19:48
PROVIDERS: Emergency Medicine; Internal Medicine
PROC: B30TZZZ Plain Radiography of Left Pulmonary Artery (ICD-10-PCS; principal; 2016-09-11)
PROC: B30SZZZ Plain Radiography of Right Pulmonary Artery (ICD-10-PCS; 2016-09-11)
DX: E87.6 Hypokalemia (principal); F05 Delirium due to known physiological condition; F33.2 Major depressive disorder, recurrent severe without psychotic features; E83.42 Hypomagnesemia; F20.0 Paranoid schizophrenia; E03.9 Hypothyroidism, unspecified; E11.9 Type 2 diabetes mellitus without complications; Z79.84 Long term (current) use of oral hypoglycemic drugs; J44.9 Chronic obstructive pulmonary disease, unspecified; F17.210 Nicotine dependence, cigarettes, uncomplicated; I10 Essential (primary) hypertension; E78.5 Hyperlipidemia, unspecified; Z91.14 Patient's other noncompliance with medication regimen; F29 Unspecified psychosis not due to a substance or known physiological condition; Z79.82 Long term (current) use of aspirin; R91.8 Other nonspecific abnormal finding of lung field; Z83.3 Family history of diabetes mellitus; Z82.49 Family history of ischemic heart disease and other diseases of the circulatory system; Z88.0 Allergy status to penicillin; Z88.1 Allergy status to other antibiotic agents; Z88.2 Allergy status to sulfonamides
CPT/HCPCS: 36415; 71010; 71275; 80048; 80053; 80076; 80307; 81003; 82550; 82553; 82607; 82746; 82947; 83605; 83735; 84132; 84443; 84484; 85025; 85027; 85610; 85730; 87040; 93005; 94640; 94664; 94760; 96361; 96372; 96374; 99285; G0480; J2060; J3475; J3486; Q9967

== ENCOUNTER 2016-09-12 10:00 | Inpatient (IN) | payer MEDICARE, OTHER ==
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
--- NOTE | ~2016-09-12 | EKG ---
PATIENT: RUI MARTINEZ UNIT #: [id number] Ventricular Rate: 71 BPM Atrial Rate: 71 BPM P-R Interval: 130 ms QRS Duration: 76 ms Q-T Interval: 416 ms QTC Calculation(Bezet): 452 ms P [place]: 40 degrees Calculated R [place]: 55 degrees Calculated T [place]: 44 degrees Diagnosis Line: Normal sinus rhythm Diagnosis Line: Low voltage QRS Diagnosis Line: Borderline ECG Diagnosis Line: When compared with ECG of 09-SEP-2016 11:05, Diagnosis Line: Vent. rate has decreased BY 39 BPM Diagnosis Line: Nonspecific T wave abnormality no longer evident Diagnosis Line: in Anterior leads Diagnosis Line: Confirmed by JAMI GALICIA MD ([id number]) on Diagnosis Line: 09/14/2016 3:17:26 PM INTERPRETING MD: FRIDA IRENE
--- NOTE | ~2016-09-12 | DS ---
Unit #: [id number] #: [id number] Patient: RUI MARTINEZ [id number] [facility] [address] [place] [address] [id number] I MR#: [id number] NAME: RUI MARTINEZ. ROOM: [facility] Age: 56 Sex: F Admission Date: 09/12/2016 : 1960 Discharge Date: 09/16/2016 Attending Physician: Juan Antonio Nuñez M.D. Primary Care Physician: Lakia Roth M.D. DISCHARGE SUMMARY REASON FOR ADMISSION Depression, psychosis. DIAGNOSTIC STUDIES Laboratory data unremarkable. HOSPITAL COURSE The patient was admitted to inpatient unit after the patient was medically stabilized at [facility]. The patient did fairly well, able to participate in programming, expressive therapy, medication management, psychoeducation, and psychotherapy use. The patient was treated with the following medications, Remeron, Risperdal, Zoloft. The patient was discharged when the patient showed progress in mood and behavior, denied any psychotic symptoms. DISCHARGE DIAGNOSES [place] I Schizophrenia, chronic, paranoid type, F20.0. Major depressive disorder, recurrent, severe, F33.2. [place] II Deferred. [place] III Please refer to history and physical. [place] IV Psychosocial stressors. [place] V INSTRUCTIONS TO PATIENT The patient is to follow up in outpatient clinic and with social problems specialist. DISCHARGE MEDICATIONS 1. Remeron 15 mg at bedtime for sleep and depression 2. Zoloft 50 mg at bedtime for depression 3. Risperdal 2 mg at bedtime for psychosis. CONDITION AT DISCHARGE The patient is pleasant and cooperative, denied any psychotic symptoms or any suicidal ideation. PROGNOSIS Guarded. DIET AND ACTIVITY Unit #: [id number] #: [id number] Patient: RUI MARTINEZ As tolerated. Dictated by... Shreyas Boategn/patrick TD: 09/17/2016 07:41 JOB #: [id number] DISCHARGE SUMMARY Page 1 of 1 X Juan Antonio Nuñez MD DISCHARGE SUMMARY
--- NOTE | ~2016-09-12 | HP ---
Unit #: [id number] #: [id number] Patient: RUI MARTINEZ [id number] [place] [address] [id number] MR#: [id number] NAME: RUI MARTINEZ. ROOM: [facility] Age: 56 Sex: F Admission Date: 09/12/2016 : 1960 Attending Physician: Juan Antonio Nuñez M.D. Admitting Physician: Juan Antonio Nuñez M.D. Primary Care Physician: Lakia Roth M.D. HISTORY AND PHYSICAL HISTORY OF PRESENT ILLNESS The patient is a 56-year-old female admitted to [address] [place] [address] on 09/12/2016 for auditory hallucinations. PAST MEDICAL HISTORY 1. Hypothyroidism 2. Type two diabetes 3. COPD 4. Hypertension 5. Hyperlipidemia PAST SURGICAL HISTORY 1. Appendectomy 2. Myomectomy 3. Toe surgery 4. Heart cath SOCIAL HISTORY The patient is disabled. She smokes one pack of cigarettes daily. Denies alcohol and drug use. FAMILY MEDICAL HISTORY Noncontributory. ALLERGIES Penicillin, sulfa and Biaxin. CURRENT MEDICATIONS 1. [place] 3 2. Aspirin 3. Synthroid 4. Metroprolol 5. Pravastatin 6. Ativan 7. Dulera 8. DuoNeb 9. Advair 10. Metformin 11. Potassium 12. BuSpar 13. Remeron 14. Zoloft 15. Abilify Unit #: [id number] #: [id number] Patient: RUI MARTINEZ REVIEW OF SYSTEMS CONSTITUTIONAL: No fever or chills. HEENT: Denies any sore throat, ear pain or runny nose. CARDIOVASCULAR: Denies chest pain, irregular heart rhythm or palpitations. CHEST: Denies shortness of breath or cough. No hemoptysis. GASTROINTESTINAL: Denies nausea, vomiting, diarrhea or chronic constipation. ENDOCRINE: Denies history of increased thirst or urination. No recent significant weight loss or gain. GENITOURINARY: Denies dysuria, frequency, or hematuria. SKIN: Denies any rashes. HEMATOLOGIC: Denies history of increased bleeding or bruising. MUSCULOSKELETAL: Denies any hot, swollen joints. No generalized muscle pain. NEUROLOGIC: Denies problems with vision or speech. No frequent, severe headaches. No numbness, tingling or weakness in any extremities. Denies loss of bladder or bowel control. PHYSICAL EXAM GENERAL: She is awake, alert and oriented in no acute distress. VITAL SIGNS: Temperature 98.3, heart rate 112, respiration 16, blood pressure 136/72. HEIGHT: 5'2". WEIGHT: 121 pounds. SKIN: Warm and dry without rash or lesion. HEENT: Normocephalic. TMs not viewed. Oral and nasal passages clear. Conjunctivae clear. PERRLA. EOMs intact. NECK: Supple without lymphadenopathy or thyromegaly. HEART: Regular rate and rhythm without murmur. LUNGS: Clear. ABDOMEN: Soft, nontender. : Not done. EXTREMITIES: No evidence of cyanosis, clubbing or edema. Moves all without focal deficit. NEUROLOGICAL: Grossly within normal limits. Cranial Nerves: II: Visual ramos are intact. III, IV AND : Extraocular movements are intact. Pupils are equal, round and reactive to light. V: Facial sensation is grossly normal. VII: Facial movements and expression are normal. VIII: Auditory acuity grossly intact. IX, X: Uvula is midline. Phonation is normal. XI: Patient shrugs shoulders and turns head normally. XII: Tongue protrudes in the midline. Sensory and Motor Function: Sensory and motor sensation is grossly normal. Motor: moves all extremities well. IMPRESSION 1. Psychiatric admission. 2. Hypothyroidism. 3. Type II diabetes. 4. COPD. 5. Hypertension. 6. Hyperlipidemia. RECOMMENDATIONS Psychiatric per psychiatrist. MEDICAL: No contraindication to participate in facility activities. Unit #: [id number] #: [id number] Patient: RUI MARTINEZ MEDICAL PROGNOSIS Fair. MEDICAL CONDITION Stable. Dictated by... Birdie Simental/yi TD: 09/13/2016 19:06 JOB #: [id number] HISTORY AND PHYSICAL Page 1 of 1 X PUNEET TORRES APRN HISTORY AND PHYSICAL
--- NOTE | ~2016-09-12 | PN ---
Unit #: [id number] #: [id number] Patient: CRYSTAL CHARLTON [id number] [facility] [address] [place] [address] [id number] I MR#: [id number] NAME: CRYSTAL CHARLTON. ROOM: [facility] Age: 56 Sex: F Admission Date: 09/12/2016 : 1960 Attending Physician: Juan Antonio Nuñez M.D. Admitting Physician: Juan Antonio Nuñez M.D. Primary Care Physician: Shreyas Talavera PROGRESS NOTES DATE OF SERVICE: 09/14/2016 DISCUSSION Ms. Crystal Charlton is a 56-year-old female, seen on 09/14/2016. The patient dressed casually; hygiene and grooming, fair; flat affect, sad, dysphoric, withdrawn, isolative, guarded. The patient was on hold. The patient was explained waiting for a family session before consider discharge. The patient is still anxious, sad, depressed, withdrawn, isolative. Complete review of systems unremarkable. MENTAL STATUS EXAMINATION General appearance, the patient's hygiene and grooming, poor. Attention span and concentration, fair. Oriented in place and person. Mood and affect, sad, depressed, flat. Speech, monotone. Thought process, concrete. The patient denied any thoughts of harming self or others, but guarded, somewhat paranoid. Recent and remote memory, poor. Insight and judgment, poor. DIAGNOSES History of schizophrenia, chronic, paranoid type; major depressive disorder, recurrent, severe. ASSESSMENT AND PLAN Advised to continue with current medication and therapeutic protocol. If needed, consider further adjustment of medication. Dictated by... Shreyas Boateng/juany TD: 09/15/2016 17:10 JOB #: [id number] Unit #: [id number] #: [id number] Patient: CRYSTAL CHARLTONFELIX PROGRESS NOTES Page 1 of 1 X Juan Antonio Nuñez MD PROGRESS NOTE
--- NOTE | ~2016-09-12 | PN ---
Unit #: [id number] #: [id number] Patient: RUI MARTINEZ [id number] [facility] [address] [place] [address] [id number] I MR#: [id number] NAME: RUI MARTINEZ. ROOM: [facility]2 Age: 56 Sex: F Admission Date: 09/12/2016 : 1960 Attending Physician: Juan Antonio Nuñez M.D. Admitting Physician: Juan Antonio Nuñez M.D. Primary Care Physician: Shreyas Talavera PROGRESS NOTES DATE OF SERVICE: 09/13/2016 DISCUSSION Ms. Rojas is a 56-year-old female, seen on 09/13/2016. The patient interviewed, chart reviewed, and obtained information from nursing staff. The patient compliant and cooperative. Mood, sad and dysphoric. Flat affect, guarded, and isolative. The patient staying in her room. Hygiene and grooming, poor. Flat, sad, dysphoric, guarded, and paranoid. REVIEW OF SYSTEMS Complete review of systems unremarkable. MENTAL STATUS EXAMINATION General appearance, the patient dressed casually. Attention span and concentration, fair. Oriented in place and person. Mood and affect, sad and depressed. Speech, monotone. Thought process, concrete. The patient denied any thoughts of harming self or others, but withdrawn, guarded, paranoid, and seclusive. Recent and remote memory, poor. Insight and judgment, poor. DIAGNOSES Schizophrenia, chronic paranoid type, F20.0 and major depressive disorder, recurrent, severe. ASSESSMENT AND PLAN Advised to continue with current medication and therapeutic protocol. If needed, consider further adjustment of medication. Dictated by... Shreyas Boateng/juany TD: 09/13/2016 12:41 JOB #: [id number] Unit #: [id number] #: [id number] Patient: RUI MARTINEZ PATRICIA PROGRESS NOTES Page 1 of 1 X Juan Antonio Nuñez MD PROGRESS NOTE
--- NOTE | ~2016-09-12 | CO ---
Unit #: [id number] #: [id number] Patient: CRYSTAL MARTINEZ [id number] [place] [address] [id number] I MR#: [id number] NAME: CRYSTAL MARTINEZ. ROOM: [facility]2 Age: 56 Sex: F Admission Date: 09/12/2016 : 1960 Attending Physician: Juan Antonio Nuñez M.D. Primary Care Physician: Lakia Roth M.D. Consultation Date: 09/14/2016 CONSULTATION REPORT SUBJECTIVE Crystal is a 56-year-old with history of asthma. She is admitted on both Dulera and Advair. We will discontinue the Dulera. Continue Advair 1 puff b.i.d. Dictated by... Blanca Diane P.A.-C. for Shreyas Souza/juany TD: 09/15/2016 14:35 JOB #: [id number] CONSULTATION REPORT Page 1 of 1 X Blanca Diane CONSULTATION REPORT
--- NOTE | ~2016-09-12 | PN ---
Unit #: [id number] #: [id number] Patient: CRYSTAL CHARLTON [id number] [facility] [address] [place] [address] [id number] I MR#: [id number] NAME: CRYSTAL CHARLTON. ROOM: [facility]2 Age: 56 Sex: F Admission Date: 09/12/2016 : 1960 Attending Physician: Juan Antonio Nuñez M.D. Admitting Physician: Juan Antonio Nuñez M.D. Primary Care Physician: Shreyas Talavera PROGRESS NOTES DATE OF SERVICE 09/15/2016 DISCUSSION Ms. Crystal Charlton is a 56-year-old female seen on 09/14/2016. The patient interviewed, chart reviewed. Obtained information from nursing staff. The patient was compliant, cooperative. Mood sad, dysphoric, flat affect, but able to maintain safe behavior. The patient looking forward for family session. No side effects from medication. Somewhat tearful. Complete Review of Systems: Unremarkable. MENTAL STATUS EXAMINATION General Appearance: The patient dressed casually. Attention span, concentration: Fair. Oriented in time, place, and person. Mood and affect: Sad, dysphoric, depressed. Speech: Monotone. Thought process: [place]. The patient denied any thoughts of harming self or others or any psychotic symptom. Recent and remote memory: Poor. Insight and judgment: Poor. DIAGNOSES 1. Mood disorder not otherwise specified. 2. History of schizophrenia, chronic, paranoid type. ASSESSMENT/PLAN Advised to continue with current medication and therapeutic protocol. If needed, consider further adjustment of medication. Dictated by... Shreyas Boateng/flaquito TD: 09/16/2016 11:26 JOB #: [id number] Unit #: [id number] #: [id number] Patient: CRYSTAL CHARLTON PATRICIA PROGRESS NOTES Page 1 of 1 X Juan Antonio Nuñez MD PROGRESS NOTE
[~2016-09-12 10:00] MED LIST changes: +ABILIFY5 MG PO; +COMBIVENT RESPIM4 GM PO; +OMEGA 3 1,0001 EACH PO; +PATIENT'S PHARMACY
[2016-09-15 09:54] LABS: BUN/CREATININE RATIO 22.85; CALCIUM SERUM 10.2 mg/dL (8.4-10.2); CREATININE SERUM 0.7 mg/dL (0.6-1.4); GLOM FILT RATE Estimated 96.2 mL/min (>60); POTASSIUM 5.1 mmol/L (3.5-5.1)
[2016-09-17 01:03] LABS: HA AB IGM (HEPPAN) Nonreactive (()); HB CORE AB IGM (HEPPAN) Nonreactive (Nonreactive); HB S AG (HEPPAN) Nonreactive (Nonreactive); HEP C AB (HEPPAN) Nonreactive (Nonreactive); HEP C AB SIGNAL TO CUTOFF 0.01 ratio (<1.00)
== END 2016-09-16 12:10 | DRG 885 ==
LOC: P1S 20:02
PROVIDERS: Psychiatry & Neurology Psychiatry
DX: F20.0 Paranoid schizophrenia (principal); F33.2 Major depressive disorder, recurrent severe without psychotic features; E11.9 Type 2 diabetes mellitus without complications; F39 Unspecified mood [affective] disorder; E03.9 Hypothyroidism, unspecified; J44.9 Chronic obstructive pulmonary disease, unspecified; I10 Essential (primary) hypertension; E78.5 Hyperlipidemia, unspecified; F17.210 Nicotine dependence, cigarettes, uncomplicated; Z88.6 Allergy status to analgesic agent; Z88.0 Allergy status to penicillin; Z88.2 Allergy status to sulfonamides; J45.909 Unspecified asthma, uncomplicated
CPT/HCPCS: 80048; 80074; 87806; 93005

== ENCOUNTER 2016-09-18 22:00 | Inpatient (IN) | payer MEDICARE, OTHER ==
--- NOTE | ~2016-09-18 | PN ---
Unit #: [id number] #: [id number] Patient: RUI MARTINEZ [id number] [facility] [address] [place] [address] [id number] I MR#: [id number] NAME: RUI MARTINEZ. ROOM: P259 Age: 56 Sex: F Admission Date: 09/18/2016 : 1960 Attending Physician: Juan Antonio Nuñez M.D. Admitting Physician: Juan Antonio Nuñez M.D. Primary Care Physician: Shreyas Talavera PROGRESS NOTES DATE OF SERVICE: 09/26/2016 DISCUSSION Ms. Rojas is a 56-year-old female, seen on 09/26/2016. The patient interviewed, chart reviewed, and obtained information from nursing staff. The patient continues to be seclusive and isolative. Hygiene and grooming, poor. Withdrawn, isolative, paranoid. The patient denied any thoughts of harming self or others. Compliant with medication. REVIEW OF SYSTEMS Complete review of systems unremarkable. MENTAL STATUS EXAMINATION General appearance, the patient dressed in [employer] attire. Attention span and concentration, poor. Orientation in self and place. Mood and affect, labile. Speech, regular rate. Thought process, goal directed. The patient denied any thoughts of harming self or others, but guarded, paranoid, isolative, seclusive. Recent and remote memory, poor. Insight and judgment, poor. DIAGNOSES 1. Schizophrenia, chronic paranoid type. 2. Major depressive disorder, recurrent. ASSESSMENT/PLAN Advised to continue with current medication and therapeutic protocol. The patient is scheduled to have a visit with her family. We will discuss with the family about the patient's functioning and to determine about discharge plan. In the meantime, we continue with the inpatient programing for safety of the patient. Dictated by... Juan Antonio Nuñez M.D. SZMari/antwanl TD: 09/27/2016 01:46 JOB #: [id number] Unit #: [id number] #: [id number] Patient: RUI MARTINEZFELIX PROGRESS NOTES Page 1 of 1 X Juan Antonio Nuñez MD PROGRESS NOTE
--- NOTE | ~2016-09-18 | PN ---
Unit #: [id number] #: [id number] Patient: RIU MARTINEZ [id number] [facility] [address] [place] [address] [id number] I MR#: [id number] NAME: RUI MARTINEZ. ROOM: P259 Age: 56 Sex: F Admission Date: 09/18/2016 : 1960 Attending Physician: Juan Antonio Nuñez M.D. Admitting Physician: Juan Antonio Nuñez M.D. Primary Care Physician: Shreyas Talavera PROGRESS NOTES DATE OF SERVICE: 09/27/2016 DISCUSSION Ms. Rojas is a 56-year-old female, seen on 09/27/2016. The patient interviewed, chart reviewed, and obtained information from nursing staff. The patient is compliant and cooperative. Mood is sad, dysphoric, isolative, guarded. The patient did not show any aggressive behavior. Tolerating medication fairly well. The patient still seclusive, isolative, minimal interaction with staff and peer. REVIEW OF SYSTEMS Complete review of systems unremarkable. MENTAL STATUS EXAMINATION General appearance, the patient dressed in hospital attire. Attention span and concentration, fair. Oriented in time, place, and person. Mood and affect, sad and dysphoric. Speech, monotone. Thought process, circumstantial, guarded. The patient denied any thoughts of harming self or others, but guarded, paranoid, isolative. Recent and remote memory, poor. Insight and judgment, poor. DIAGNOSIS Schizophrenia, chronic paranoid type. ASSESSMENT/PLAN Advised to continue with current medication and therapeutic protocol. Plan to discuss further treatment in family session. If needed, consider further adjustment of medication. Dictated by... Juan Antonio Nuñez M.D. SARANYA/antwanl TD: 09/29/2016 01:03 JOB #: [id number] Unit #: [id number] #: [id number] Patient: RUI MARTINEZ PROGRESS NOTES Page 1 of 1 X Juan Antonio Nuñez MD PROGRESS NOTE
--- NOTE | ~2016-09-18 | PN ---
Unit #: [id number] #: [id number] Patient: CRYSTAL CHARLTON [id number] [facility] [address] [place] [address] [id number] I MR#: [id number] NAME: CRYSTAL CHARLTON. ROOM: P259 Age: 56 Sex: F Admission Date: 09/18/2016 : 1960 Attending Physician: Juan Antonio Nuñez M.D. Admitting Physician: Juan Antonio Nuñez M.D. Primary Care Physician: Shreyas Talavera PROGRESS NOTES DATE 09/22/2016 DISCUSSION Ms. Crystal Charlton is a 56-year-old female seen on 09/22/2016. Patient interviewed. Chart reviewed. Obtained information from nursing staff. Patient was started on Haldol yesterday. Compliant, cooperative this morning but still seclusive, isolative, guarded. Patient still having some confusion, disorganized thought process, loose association. Patient impulsive, noncompliant. Patient urinated on the floor during the shift change. Family is concerned patient possibly has urinary tract infection. UA and urine culture and sensitivity ordered. Patient compliant, cooperative. Complete review of system unremarkable. MENTAL STATUS EXAMINATION General appearance, patient dressed in hospital attire. Attention span, concentration poor. Oriented in place and person. Mood and affect sad, depressed. Speech monotone. Thought process concrete. Patient denied any thoughts of harming self or others but guarded, paranoid. Recent and remote memory poor. Insight and judgement poor. DIAGNOSES 1. Schizophrenia, chronic paranoid type. 2. Mood disorder NOS. ASSESSMENT/PLAN Advised to continue with current medication and therapeutic protocol. If needed, consider further adjustment of medication and ordered UA to rule out any urinary tract infection. Dictated by... Shreyas Boateng/yuri TD: 09/23/2016 21:30 JOB #: [id number] Unit #: [id number] #: [id number] Patient: CRYSTAL CHARLTONCE PROGRESS NOTES Page 1 of 1 X Juan Antonio Nuñez MD X PROGRESS NOTE
--- NOTE | ~2016-09-18 | PN ---
Unit #: [id number] #: [id number] Patient: RUI MARTINEZ [id number] [facility] [address] [place] [address] [id number] I MR#: [id number] NAME: RUI MARTINEZ. ROOM: [facility] Age: 56 Sex: F Admission Date: 09/18/2016 : 1960 Attending Physician: Juan Antonio Nuñez M.D. Admitting Physician: Juan Antonio Nuñez M.D. Primary Care Physician: Shreyas Talavera PROGRESS NOTES DATE OF SERVICE 09/23/16 DISCUSSION Ms. Rojas is a 56-year-old female seen on 09/23/16. Patient compliant with medication. Hygiene and grooming poor. Withdrawn, isolative, guarded, paranoid. Patient denied any side effect from medication, tolerating medication fairly well, still seclusive, isolative, guarded. COMPLETE REVIEW OF SYSTEMS Unremarkable. MENTAL STATUS EXAMINATION GENERAL APPEARANCE: Patient dressed in hospital attire. ATTENTION SPAN AND CONCENTRATION: Poor. Oriented in time, place and person. MOOD AND AFFECT: Labile. SPEECH: Monotone. THOUGHT PROCESS: [place]. Patient denied any thoughts of harming self or others, but somewhat guarded, isolative, paranoid. RECENT AND REMOTE MEMORY: Poor. INSIGHT AND JUDGMENT: Poor. DIAGNOSES Schizophrenia, chronic, paranoid type Mood disorder, NOS ASSESSMENT/PLAN Advised to continue with current medication and therapeutic protocol. If needed, consider further adjustment in medication. Dictated by... Shreyas Boateng/alana TD: 09/24/2016 03:52 JOB #: [id number] Unit #: [id number] #: [id number] Patient: RUI MARTINEZ PATRICIA PROGRESS NOTES Page 1 of 1 X Juan Antonio Nuñez MD PROGRESS NOTE
--- NOTE | ~2016-09-18 | PN ---
Unit #: [id number] #: [id number] Patient: CRYSTAL CHARLTON [id number] [facility] [address] [place] [address] [id number] I MR#: [id number] NAME: CRYSTAL CHARLTON. ROOM: P258 Age: 56 Sex: F Admission Date: 09/18/2016 : 1960 Attending Physician: Juan Antonio Nuñez M.D. Admitting Physician: Juan Antonio Nuñez M.D. Primary Care Physician: Shreyas Talavera PROGRESS NOTES DATE OF SERVICE: 10/03/2016 DISCUSSION Ms. Crystal Charlton is a 56-year-old female. The patient is tolerating medication fairly well. Compliant, cooperative, still seclusive, isolative, and guarded. REVIEW OF SYSTEMS Complete review of systems unremarkable. MENTAL STATUS EXAMINATION General appearance, the patient dressed casually. Attention span and concentration, fair. Oriented in place and person. Mood and affect, labile. Speech, monotone. Thought process, concrete. The patient denied any thoughts of harming self or others, but somewhat guarded. Recent and remote memory, poor. Insight and judgment, poor. DIAGNOSIS Schizophrenia, chronic paranoid type. ASSESSMENT AND PLAN Advised to continue with current medication and therapeutic protocol. If needed, consider further adjustment of medication. Dictated by... Shreyas Boateng/juany TD: 10/03/2016 14:03 JOB #: [id number] Unit #: [id number] #: [id number] Patient: CRYSTAL CHARLTON PATRICIA PROGRESS NOTES Page 1 of 1 X Juan Antonio Nuñez MD PROGRESS NOTE
--- NOTE | ~2016-09-18 | PN ---
Unit #: [id number] #: [id number] Patient: RUI MARTINEZ [id number] [facility] [address] [place] [address] [id number] I MR#: [id number] NAME: RUI MARTINEZ. ROOM: P259 Age: 56 Sex: F Admission Date: 09/18/2016 : 1960 Attending Physician: Juan Antonio Nuñez M.D. Admitting Physician: Juan Antonio Nuñez M.D. Primary Care Physician: Shreyas Talavera PROGRESS NOTES DATE 09/20/2016 DISCUSSION Ms. Rojas is a 56-year-old female. Patient interviewed. Chart reviewed. Obtained information from nursing staff. Patient was pleasant, cooperative but still having problem with the mood lability, compliant with medication, able to maintain safe behavior. Patient still seclusive, isolative, guarded, dressed in hospital attire, somewhat guarded, paranoid. Complete review of system unremarkable. MENTAL STATUS EXAMINATION General appearance, patient dressed in hospital attire. Attention span, concentration poor. Oriented in place and person. Mood and affect sad, dysphoric. Speech monotone. Thought process concrete. Patient denied any thoughts of harming self or others but guarded, paranoid, isolative, bizarre behavior, poor hygiene. Recent and remote memory poor. Insight and judgement poor. DIAGNOSIS Schizophrenia, chronic paranoid type. ASSESSMENT/PLAN Advised to continue with current medication and therapeutic protocol. If needed, consider further adjustment of medication. Dictated by... Shreyas Boateng/yuri TD: 09/21/2016 23:07 JOB #: [id number] Unit #: [id number] #: [id number] Patient: RUI MARTINEZFELIX PROGRESS NOTES Page 1 of 1 X Juan Antonio Nuñez MD PROGRESS NOTE
--- NOTE | ~2016-09-18 | DS ---
Unit #: [id number] #: [id number] Patient: RUI MARTINEZ [id number] [facility] [address] [place] [address] [id number] I MR#: [id number] NAME: RUI MARTINEZ. ROOM: P258 Age: 56 Sex: F Admission Date: 09/18/2016 : 1960 Discharge Date: 10/06/2016 Attending Physician: Juan Antonio Nuñez M.D. Primary Care Physician: Lakia Roth M.D. DISCHARGE SUMMARY REASON FOR ADMISSION Psychosis. DIAGNOSTIC STUDIES LABORATORY RESULTS: Unremarkable. HOSPITAL COURSE The patient was admitted to inpatient unit on 09/18/2016 and discharged on 10/06/2016. The patient was treated on the inpatient unit with expressive therapy, medication management, psychotherapy, and psychoeducation. The patient was responsive to treatment. The patient was switched from oral Risperdal to Invega Sustenna. The patient was subsequently discharged with a plan to follow up in outpatient program. DISCHARGE MEDICATIONS Invega Sustenna injection 156 mg every 30 days, one injection given today; Vistaril 50 mg at bedtime for anxiety; Desyrel 50 mg p.r.n. for sleep; Symbicort for shortness of air, asthma; Synthroid 0.025 mg daily for hypothyroidism; aspirin; Glucophage; Combivent inhaler; Zoloft 50 mg at bedtime for depression; Remeron 15 mg at bedtime for depression; Lopressor 12.5 mg b.i.d. for hypertension. The patient to continue with Klor-Con and fish oil. DISCHARGE DIAGNOSES Psychiatric: Schizophrenia, chronic, paranoid type, F20.0; major depressive disorder, recurrent, severe, F33.2. Secondary diagnosis: Deferred. Medical diagnosis: Remarkable for hypothyroidism, type 2 diabetes, chronic obstructive pulmonary disease, hypertension, hyperlipidemia. Stressors: Psychosocial stressors. DISCHARGE INSTRUCTIONS The patient to follow up in outpatient clinic as per forensic social worker. CONDITION ON DISCHARGE The patient was pleasant and cooperative. Denied any psychotic symptom or any suicidal ideation. PROGNOSIS Guarded. Unit #: [id number] #: [id number] Patient: RUI MARTINEZ DIET AND ACTIVITY As tolerated. Dictated by... Juan Antonio Nuñez M.D. LINDAC/modl TD: 10/06/2016 17:58 JOB #: [id number] DISCHARGE SUMMARY Page 1 of 1 X Juan Antonio Nuñez MD DISCHARGE SUMMARY
--- NOTE | ~2016-09-18 | PN ---
Unit #: [id number] #: [id number] Patient: CRYSTAL CHARLTON [id number] [facility] [address] [place] [address] [id number] I MR#: [id number] NAME: CRYSTAL CHARLTON. ROOM: P258 Age: 56 Sex: F Admission Date: 09/18/2016 : 1960 Attending Physician: Juan Antonio Nuñez M.D. Admitting Physician: Juan Antonio Nuñez M.D. Primary Care Physician: Shreyas Talavera PROGRESS NOTES DATE OF SERVICE: 10/04/2016 DISCUSSION Ms. Crystal Charlton is a 56-year-old female, seen on 10/04/2016. The patient interviewed, chart reviewed, and obtained information from nursing staff. The patient was compliant and cooperative, able to maintain safe behavior. No aggression. The patient still guarded, withdrawn, isolative. No side effects from medication. REVIEW OF SYSTEMS Complete review of systems unremarkable. MENTAL STATUS EXAMINATION General appearance; the patient dressed casually, withdrawn, isolative, sad and dysphoric mood. Attention span and concentration, fair. Oriented in place and person. Mood and affect, labile. Speech, monotone. Thought process, concrete. The patient denied any thoughts of harming self or others, but guarded. Recent and remote memory, poor. Insight and judgment, poor. DIAGNOSES 1. Schizophrenia, chronic paranoid type. 2. Mood disorder, not otherwise specified. ASSESSMENT AND PLAN Advised to continue with current medication and therapeutic protocol with a plan to consider discharge on Tuesday and the patient will get second shot of injection Invega Sustenna 156 mg. Dictated by... Shreyas Boateng/antwanl TD: 10/05/2016 01:42 JOB #: [id number] Unit #: [id number] #: [id number] Patient: CRYSTAL CHARLTONFELIX PROGRESS NOTES Page 1 of 1 X Juan Antonio Nuñez MD PROGRESS NOTE
--- NOTE | ~2016-09-18 | PN ---
Unit #: [id number] #: [id number] Patient: RUI MARTINEZ [id number] [facility] [address] [place] [address] [id number] I MR#: [id number] NAME: RUI MARTINEZ. ROOM: P259 Age: 56 Sex: F Admission Date: 09/18/2016 : 1960 Attending Physician: Juan Antonio Nuñez M.D. Admitting Physician: Juan Antonio Nuñez M.D. Primary Care Physician: Shreyas Talavera PROGRESS NOTES DATE OF SERVICE 10/01/16 DISCUSSION Ms. Rojas is a 16-year-old female seen on 10/01/16. Patient compliant, cooperative, mood sad, dysphoric, anxious but reports feeling better. Patient will get next injection of Invega Sustenna on Tuesday. Patient compliant, cooperative, seclusive, isolative, guarded, withdrawn but able to maintain safe behavior. COMPLETE REVIEW OF SYSTEMS Unremarkable. MENTAL STATUS EXAMINATION GENERAL APPEARANCE: Patient dressed casually, hygiene and grooming [id number]-we-[id number] poor. ATTENTION SPAN AND CONCENTRATION: Fair. Oriented in place and person. MOOD AND AFFECT: Labile. SPEECH: Monotone. THOUGHT PROCESS: [place]. Patient guarded, paranoid but denied any thoughts of harming self or others. RECENT AND REMOTE MEMORY: Poor. INSIGHT AND JUDGMENT: Poor. DIAGNOSIS Schizophrenia, chronic, paranoid type ASSESSMENT/PLAN Advised to add hydroxyzine 50 mg at bedtime and trazodone 50 mg at bedtime p.r.n. for sleep, continue with the current medication. If needed, consider further adjustment in medication as patient is having trouble sleeping. Dictated by... Juan Antonio Nuñez M.D. SARANYA/alana TD: 10/02/2016 13:33 Unit #: [id number] #: [id number] Patient: RUI MARTINEZ JOB #: [id number] PATRICIA PROGRESS NOTES Page 1 of 1 X Juan Antonio Nuñez MD PROGRESS NOTE
--- NOTE | ~2016-09-18 | PN ---
Unit #: [id number] #: [id number] Patient: RUI MARTINEZ [id number] [facility] [address] [place] [address] [id number] I MR#: [id number] NAME: RUI MARTINEZ. ROOM: P258 Age: 56 Sex: F Admission Date: 09/18/2016 : 1960 Attending Physician: Juan Antonio Nuñez M.D. Admitting Physician: Juan Antonio Nuñez M.D. Primary Care Physician: Shreyas Talavera PROGRESS NOTES DATE OF SERVICE: 10/05/2016 DISCUSSION Ms. Rojas is a 56-year-old female, seen on 10/05/2016. The patient interviewed, chart reviewed, and obtained information from nursing staff. The patient is looking forward to be discharged soon. Plan to consider discharge tomorrow. The patient will get next injection of Invega Sustenna 156 mg tomorrow. Mood is sad and dysphoric, but able to maintain safe behavior. REVIEW OF SYSTEMS A complete review of systems is unremarkable. MENTAL STATUS EXAMINATION General appearance; the patient dressed casually. Attention span and concentration, fair. Oriented in place and person. Mood and affect, labile. Speech, monotone. Thought process, concrete. The patient denied any thoughts of harming self or others. Recent and remote memory, poor. Insight and judgment, poor. DIAGNOSES Schizophrenia, chronic, paranoid type; mood disorder, not otherwise specified. ASSESSMENT AND PLAN Advised to continue with current medication and therapeutic protocol. If needed, consider further adjustment of medication. Dictated by... Shreyas Boateng/juany TD: 10/06/2016 12:30 JOB #: [id number] Unit #: [id number] #: [id number] Patient: RUI MARTINEZ PATRICIA PROGRESS NOTES Page 1 of 1 X Juan Antonio Nuñez MD PROGRESS NOTE
--- NOTE | ~2016-09-18 | PN ---
Unit #: [id number] #: [id number] Patient: RUI MARTINEZ [id number] [facility] [address] [place] [address] [id number] MR#: [id number] NAME: RUI MARTINEZ. ROOM: P259 Age: 56 Sex: F Admission Date: 09/18/2016 : 1960 Attending Physician: Juan Antonio Nuñez M.D. Admitting Physician: Juan Antonio Nuñez M.D. Primary Care Physician: Shreyas Talavera PROGRESS NOTES DATE OF SERVICE: 09/19/2016 DISCUSSION Ms. Rojas is a 56-year-old female, seen on 09/19/2016. The patient interviewed, chart reviewed, and obtained information from nursing staff. The patient was pleasant and cooperative. The patient received p.r.n. Ativan as the patient was very agitated, running up and down the lou. REVIEW OF SYSTEMS Complete review of systems unremarkable. MENTAL STATUS EXAMINATION General appearance, the patient dressed casually. Attention span and concentration, poor. Oriented in place and person. Mood and affect, labile. Speech, monotone. Thought process, concrete. The patient denied any thoughts of harming self or others, but guarded, paranoid, agitation. Recent and remote memory, poor. Insight and judgment, poor. DIAGNOSES 1. Schizophrenia, chronic paranoid type. 2. Mood disorder, not otherwise specified. ASSESSMENT/PLAN Advised to continue with current medication and therapeutic protocol. If needed, consider further adjustment of medication. Dictated by... Shreyas Boateng/juany TD: 09/21/2016 01:46 JOB #: [id number] Unit #: [id number] #: [id number] Patient: RUI MARTINEZ PATRICIA PROGRESS NOTES Page 1 of 1 X Juan Antonio Nuñez MD PROGRESS NOTE
--- NOTE | ~2016-09-18 | PN ---
Unit #: [id number] #: [id number] Patient: RUI MARTINEZ [id number] [facility] [address] [place] [address] [id number] I MR#: [id number] NAME: RUI MARTINEZ. ROOM: P259 Age: 56 Sex: F Admission Date: 09/18/2016 : 1960 Attending Physician: Juan Antonio Nuñez M.D. Admitting Physician: Juan Antonio Nuñez M.D. Primary Care Physician: Shreyas Talavera PROGRESS NOTES DATE OF SERVICE 09/30/16 DISCUSSION Ms. Rojas is a 56-year-old female seen on 09/30/16. Patient received injection of Invega Sustenna 234 mg. Patient will get next injection in a week, 156 mg. Patient denied any side effect from medication but still seclusive, isolative, guarded. COMPLETE REVIEW OF SYSTEMS Unremarkable. MENTAL STATUS EXAMINATION GENERAL APPEARANCE: Patient dressed casually. ATTENTION SPAN AND CONCENTRATION: Poor. Oriented in place and person. MOOD AND AFFECT: Sad, depressed. SPEECH: Monotone. THOUGHT PROCESS: [place]. Patient denied any thoughts of harming self or others, but guarded, paranoid, isolative. RECENT AND REMOTE MEMORY: Poor. INSIGHT AND JUDGMENT: Poor. DIAGNOSIS Schizophrenia, chronic, paranoid type ASSESSMENT/PLAN Advised to continue with current medication and therapeutic protocol. If needed, consider further adjustment in medication. Dictated by... Shreyas Boateng/alana TD: 10/02/2016 10:09 JOB #: [id number] Unit #: [id number] #: [id number] Patient: RUI MARTINEZ PROGRESS NOTES Page 1 of 1 X Juan Antonio Nuñez MD PROGRESS NOTE
--- NOTE | ~2016-09-18 | PN ---
Unit #: [id number] #: [id number] Patient: CRYSTAL CHARLTON [id number] [facility] [address] [place] [address] [id number] I MR#: [id number] NAME: CRYSTAL CHARLTON. ROOM: P259 Age: 56 Sex: F Admission Date: 09/18/2016 : 1960 Attending Physician: Juan Antonio Nuñez M.D. Admitting Physician: Juan Antonio Nuñez M.D. Primary Care Physician: Shreyas Talavera PROGRESS NOTES DATE 09/29/2016 DISCUSSION Ms. Crystal Charlton is a 56-year-old female seen on 09/29/2016. The patient interviewed, chart reviewed. Obtained information from nursing staff. The patient tolerating medication fairly well. Mood sad, dysphoric, flat, affect guarded, paranoid. The patient has a history of noncompliance and agreed to try switching the patient from oral to long acting medication Invega Sustenna. The patient will receive first dose tomorrow Invega Sustenna to 34 mg and after that in a week 234 mg tomorrow and after one week 156 mg and we will do ____(:42) dose every month and Invega Sustenna injection intramuscular deep 156 mg after that. The patient did not show any aggression. Complete review of systems unremarkable. MENTAL STATUS EXAMINATION General appearance, the patient dressed in hospital attire. Attention span and concentration poor. Oriented to place and person. Mood and affect sad, dysphoric, anxious. Speech rapid in rate. Thought process circumstantial. The patient denied any thoughts of harming self or others but guarded, paranoid, isolative, seclusive. Attending to internal stimuli. Recent and remote memory poor. Insight and judgement poor. DIAGNOSES Schizophrenic chronic paranoid type. ASSESSMENT/PLAN Advise to continue with current medication and therapeutic protocol. If needed consider further adjustment of medication. Dictated by... Juan Antonio Nuñez M.D. SARANYA/yi TD: 10/01/2016 04:41 JOB #: [id number] Unit #: [id number] #: [id number] Patient: CRYSTAL CHARLTON PROGRESS NOTES Page 1 of 1 X Juan Antonio Nuñez MD PROGRESS NOTE
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
--- NOTE | ~2016-09-18 | EKG ---
PATIENT: RUI MARTINEZ UNIT #: [id number] Ventricular Rate: 62 BPM Atrial Rate: 62 BPM P-R Interval: 224 ms QRS Duration: 72 ms Q-T Interval: 450 ms QTC Calculation(Bezet): 456 ms P Mena: 86 degrees Calculated R Mena: 40 degrees Calculated T Mena: 42 degrees Diagnosis Line: Sinus rhythm with 1st degree A-V block Diagnosis Line: Non Specific ST Changes- Abnormality Diagnosis Line: Abnormal ECG Diagnosis Line: When compared with ECG of 13-SEP-2016 09:19, Diagnosis Line: CO interval has increased Diagnosis Line: Nonspecific T wave abnormality now evident in Diagnosis Line: Lateral leads Diagnosis Line: Confirmed by MATTHEW RIENE, SIERRA ([id number]) on Diagnosis Line: 10/03/2016 11:04:18 AM INTERPRETING MDClaudy WEISS
--- NOTE | ~2016-09-18 | PN ---
Unit #: [id number] #: [id number] Patient: CRYSTAL CHARLTON [id number] [facility] [address] [place] [address] [id number] I MR#: [id number] NAME: CRYSTAL CHARLTON. ROOM: P259 Age: 56 Sex: F Admission Date: 09/18/2016 : 1960 Attending Physician: Juan Antonio Nuñez M.D. Admitting Physician: Juan Antonio Nuñez M.D. Primary Care Physician: Lakia Roth M.D. [facility] PROGRESS NOTES DATE 09/28/2016 DISCUSSION Ms. Crystal Charlton is a 56-year-old female seen on 09/28/2016. Patient interviewed. Chart reviewed. Obtained information from nursing staff. Patient was compliant, cooperative. Mood sad, dysphoric, flat affect, guarded. Patient was able to maintain safe behavior, seclusive, isolative, remains guarded, paranoid, attending to internal stimuli. Will not talk about any stuff. No interaction with staff and peer. Complete review of system unremarkable. MENTAL STATUS EXAMINATION General appearance, patient dressed casually in hospital attire. Attention span, concentration fair. Oriented in place and person. Mood and affect was labile. Speech monotone. Thought process concrete. Patient guarded, paranoid. Denied any thoughts of harming self or others. Recent and remote memory poor. Insight and judgement poor. DIAGNOSES 1. Schizophrenia, chronic paranoid type. 2. Mood disorder NOS. ASSESSMENT/PLAN Advised to continue with current medication and therapeutic protocol. Plan to do a family session and discuss patient's further treatment. Dictated by... Shreyas Boateng/yuri TD: 09/29/2016 19:35 JOB #: [id number] Unit #: [id number] #: [id number] Patient: CRYSTAL CHARLTONCE PROGRESS NOTES Page 1 of 1 X Juan Antonio Nuñez MD PROGRESS NOTE
--- NOTE | ~2016-09-18 | PN ---
Unit #: [id number] #: [id number] Patient: CRYSTAL CHARLTON [id number] [facility] [address] [place] [address] [id number] I MR#: [id number] NAME: CRYSTAL CHARLTON. ROOM: P259 Age: 56 Sex: F Admission Date: 09/18/2016 : 1960 Attending Physician: Juan Antonio Nuñez M.D. Admitting Physician: Juan Antonio Nuñez M.D. Primary Care Physician: Shreyas Talavera PROGRESS NOTES DATE 09/21/2016 DISCUSSION Ms. Crystal Charlton is a 56-year-old female seen on 09/21/2016. Patient interviewed. Chart reviewed. Obtained information from nursing staff. Patient was pleasant, cooperative but seclusive, isolative, flat affect, guarded but patient had episode this afternoon when she became mad, angry, paranoid, agitated. Behavior described as thought blocking, disorganized, paranoid. Patient was impulsive, agitated. Patient was started on Haldol 2 mg b.i.d. Complete review of system unremarkable. MENTAL STATUS EXAMINATION General appearance, patient dressed casually. Hygiene and grooming poor. Oriented in place and person. Mood and affect sad, depressed. Speech monotone to circumstantial. Thought process guarded, paranoid. Denied any thoughts of harming self or others but paranoia, isolation, flat affect, bizarre behavior. Recent and remote memory poor. Insight and judgement poor. DIAGNOSIS Schizophrenia, chronic paranoid type. ASSESSMENT/PLAN Advised to continue with current medication with a plan to add Haldol 2 mg b.i.d. If needed, consider further adjustment of medication. Patient was also given a p.r.n. Haldol 2 mg and Ativan 0.5 mg in the afternoon. Dictated by... Juan Antonio Nuñez M.D. SARANYA/yuri TD: 09/22/2016 19:38 JOB #: [id number] Unit #: [id number] #: [id number] Patient: CRYSTAL CHARLTON [facility] PROGRESS NOTES Page 1 of 1 X Juan Antonio Nuñez MD PROGRESS NOTE
--- NOTE | ~2016-09-18 | CO ---
Unit #: [id number] #: [id number] Patient: CRYSTAL MARTINEZ [id number] [place] [address] [id number] I MR#: [id number] NAME: CRYSTAL MARTINEZ. ROOM: P259 Age: 56 Sex: F Admission Date: 09/18/2016 : 1960 Attending Physician: Juan Antonio Nuñez M.D. Primary Care Physician: Lakia Roth M.D. Consultation Date: 09/24/2016 CONSULTATION REPORT SUBJECTIVE Crystal is a 56-year-old who has some dry skin on her arms and hands. Nursing staff will provide lotion to her as needed and after showers. Dictated by... Blanca Diane P.A.-C. for Shreyas Souza/juany TD: 09/27/2016 01:56 JOB #: [id number] CONSULTATION REPORT Page 1 of 1 X Blanca Diane CONSULTATION REPORT
--- NOTE | ~2016-09-18 | PN ---
Unit #: [id number] #: [id number] Patient: CRYSTAL CHARLTON [id number] [facility] [address] [place] [address] [id number] I MR#: [id number] NAME: CRYSTAL CHARLTON. ROOM: P258 Age: 56 Sex: F Admission Date: 09/18/2016 : 1960 Attending Physician: Juan Antonio Nuñez M.D. Admitting Physician: Juan Antonio Nuñez M.D. Primary Care Physician: Shreyas Talavera PROGRESS NOTES DATE 10/02/2016 DISCUSSION Ms. Crystal Charlton is a 56-year-old female seen on 10/02/2016. The patient continues to be withdrawn, isolative, guarded, paranoid, making progress no aggression or agitation able to participate in some groups. Vital signs 97.8, 80, 20, 79/54. The patient is compliant with medication. The patient was taken off from antipsychotic as the patient is now injection Invega Sustenna. Next injection due on Tuesday. Complete review of systems unremarkable. MENTAL STATUS EXAMINATION General appearance, the patient dressed casually. Attention span and concentration fair. Oriented to place and person. Mood and affect labile. Speech monotone. Thought process concrete. The patient denied any thoughts of harming self or others. Recent and remote memory poor. Insight and judgement poor. DIAGNOSES Schizophrenia chronic paranoid type. ASSESSMENT/PLAN Advise to continue with current medication and therapeutic protocol. If needed consider further adjustment of medication. Dictated by... Shreyas Boateng/yi TD: 10/05/2016 01:47 JOB #: [id number] Unit #: [id number] #: [id number] Patient: CRYSTAL CHARLTON PROGRESS NOTES Page 1 of 1 X Juan Antonio Nuñez MD X PROGRESS NOTE
--- NOTE | ~2016-09-18 | PN ---
Unit #: [id number] #: [id number] Patient: CRYSTAL CHARLTON [id number] [facility] [address] [place] [address] [id number] I MR#: [id number] NAME: CRYSTAL CHARLTON. ROOM: [facility] Age: 56 Sex: F Admission Date: 09/18/2016 : 1960 Attending Physician: Juan Antonio Nuñez M.D. Admitting Physician: Juan Antonio Nuñez M.D. Primary Care Physician: Shreyas Talavera PROGRESS NOTES DATE OF SERVICE: 09/25/2016 DISCUSSION Ms. Crystal Charlton is a 56-year-old female, seen on 09/25/2016. The patient interviewed, chart reviewed, and obtained information from nursing staff. The patient compliant and cooperative. Vital signs were stable at 98.6, 84, and 91/60. The patient was cooperative, still somewhat isolative, guarded, flat affect, and paranoid. No aggressive behavior. Compliant with medication. REVIEW OF SYSTEMS Complete review of systems is unremarkable. MENTAL STATUS EXAMINATION General appearance, the patient is dressed casually. Attention, span and concentration, fair. Oriented in place and person. Mood and affect, labile. Speech, monotone. Thought process, concrete. The patient denied any thoughts of harming self or others, but somewhat guarded and isolative. Recent and remote memory, poor. Insight and judgment, poor. DIAGNOSIS Schizophrenia, chronic paranoid type. ASSESSMENT AND PLAN I advised to continue with current medication and therapeutic protocol. If needed, consider further adjustment of medication. Dictated by... Shreyas Boateng/juany TD: 09/25/2016 12:43 JOB #: [id number] Unit #: [id number] #: [id number] Patient: CRYSTAL CHARLTON PATRICIA PROGRESS NOTES Page 1 of 1 X Juan Antonio Nuñez MD PROGRESS NOTE
--- NOTE | ~2016-09-18 | PN ---
Unit #: [id number] #: [id number] Patient: CRYSTAL CHARLTON [id number] [facility] [address] [place] [address] [id number] I MR#: [id number] NAME: CRYSTAL CHARLTON. ROOM: P259 Age: 56 Sex: F Admission Date: 09/18/2016 : 1960 Attending Physician: Juan Antonio Nuñez M.D. Admitting Physician: Juan Antonio Nuñez M.D. Primary Care Physician: Shreyas Talavera PROGRESS NOTES DATE OF SERVICE: 09/24/2016 DISCUSSION Ms. Crystal Charlton is a 56-year-old female, seen on 09/24/2016. The patient interviewed, chart reviewed, and obtained information from nursing staff. The patient continues to be isolative, flat affect, guarded. Behavior was bizarre yesterday. Tolerating medication fairly well, no side effects from medication. Concerned about UTI, UA was ordered yesterday. The patient was pacing in the hallway yesterday, somewhat shaky and anxious. The patient did not show any aggression. REVIEW OF SYSTEMS Complete review of systems unremarkable. MENTAL STATUS EXAMINATION General appearance, the patient dressed in hospital attire, seclusive, isolative, flat affect. Attention span and concentration, poor. Orientation in self. Mood and affect, labile. Speech, slow. Thought process, circumstantial. The patient was paranoid, seclusive, isolative, guarded. Denied any thoughts of harming self or others. Recent and remote memory, poor. Insight and judgment, poor. DIAGNOSES 1. Schizophrenia, chronic paranoid type. 2. Major depressive disorder, recurrent. ASSESSMENT/PLAN Advised to continue with current medication and therapeutic protocol. If needed, consider further adjustment of medication. Dictated by... Shreyas Boateng/juany TD: 09/25/2016 22:34 JOB #: [id number] Unit #: [id number] #: [id number] Patient: CRYSTAL CHARLTON [facility] PROGRESS NOTES Page 1 of 1 X Juan Antonio Nuñez MD PROGRESS NOTE
--- NOTE | ~2016-09-18 | HP ---
Unit #: [id number] #: [id number] Patient: CRYSTAL MARTINEZ [id number] [place] [address] [id number] MR#: [id number] NAME: CRYSTAL MARTINEZ. ROOM: P258 Age: 56 Sex: F Admission Date: 09/18/2016 : 1960 Attending Physician: Juan Antonio Nuñze M.D. Admitting Physician: Juan Antonio Nuñez M.D. Primary Care Physician: Lakia Roth M.D. HISTORY AND PHYSICAL Crystal is a 56-year-old female admitted on 09/18/[address] [place] [address] for psychosis. She was recently admitted for the same on 09/12/2016. I reviewed the history and physical from that admission and there are no changes. Dictated by... Birdie Colby TD: 09/19/2016 22:14 JOB #: [id number] HISTORY AND PHYSICAL Page 1 of 1 X SUSSY LYNN APRN HISTORY AND PHYSICAL
[2016-09-21 10:31] LABS: AMPHETAMINE NEG (NEG); BARBITURATES NEG (NEG); BENZODIAZEPINES NEG (NEG); COCAINE NEG (NEG); MARIJUANA NEG (NEG); OPIATES NEG (NEG); TRICYCLIC ANTIDEPRESSANTS NEG (NEG); U METHADONE NEG (NEG)
[2016-09-23 12:29] LABS: URINE APPEARANCE CLEAR; URINE BILIRUBIN NEG (NEG); URINE BLOOD TRACE (NEG); URINE COLOR YELLOW; URINE GLUCOSE NEG (NEG); URINE KETONE NEG (NEG); URINE LEUKOCYTE ESTERASE 1+ (NEG); URINE NITRATE NEG (NEG); URINE PROTEIN NEG (NEG); URINE SPECIFIC GRAVITY 1.018 (1.003-1.035); URINE UROBILINOGEN 0.2 MG/DL (NEG)
[2016-09-23 12:31] LABS: URBCS1 AUWI 0-2 /[HPF] (0-2); URINE BACTERIA AUWI NEG (NEGATIVE); URINE SQUAMOUS EPITHELIAL CELL FEW /[HPF]
== END 2016-10-06 12:45 | disposition home or self-care (01) | DRG 885 ==
LOC: P2L 23:42
PROVIDERS: Psychiatry & Neurology Psychiatry
DX: F20.0 Paranoid schizophrenia (principal); F33.2 Major depressive disorder, recurrent severe without psychotic features; E11.9 Type 2 diabetes mellitus without complications; F39 Unspecified mood [affective] disorder; K21.9 Gastro-esophageal reflux disease without esophagitis; E03.9 Hypothyroidism, unspecified; Z79.84 Long term (current) use of oral hypoglycemic drugs; J44.9 Chronic obstructive pulmonary disease, unspecified; I10 Essential (primary) hypertension; E78.5 Hyperlipidemia, unspecified
CPT/HCPCS: 80307; 81003; 82947; 93005; J2060

== ENCOUNTER → 2016-10-27 | Outpatient (CLI) | payer MEDICARE, OTHER ==
--- NOTE | ~2016-10-27 | MR17 ---
[facility] A Service of [facility] & [facility] RADIOLOGY TEXT RESULTS PATIENT: RUI MARTINEZ LOCATION: [facility] : 58 UNIT #: [id number] AGE: [address]: Lakia Roth MD SEX: F ORDER DR: [id number] [address] [address] [id number] MR#: [id number] Acc #: [id number] NAME: RUI MARTINEZ : 1960 SEX: F STUDY DATE/TIME: 10/27/2016 8:40 UNIT: [facility] ROOM: STUDY DESCRIPTION: MR Brain WWo Contrast Attending Physician: Lakia Roth M.D. Referring Physician: Lakia Roth M.D. Ordering Physician: Lakia Roth M.D. Primary Care Physician: Lakia Roth M.D. MRI CENTER REPORT This report is preliminary unless electronic signature is present. EXAM MRI of the brain with and without contrast dated 10/27/2016. COMPARISON MRI brain without contrast dated 06/14/2016. HISTORY Increasing headaches which are now more severe and more frequent in the last 5 months. TECHNIQUE Multisequence multiplanar imaging of the brain was obtained with and without contrast. 11 mL of MultiHance was administered intravenously. FINDINGS Age-appropriate brain parenchyma is seen. Punctate tiny less than 5 mm 2 or 3 lesions are noted in the white matter, particularly in the left frontal subcortical white matter. The faint increased T2 signal noted in the bilateral periatrial white matter are of uncertain clinical significance. No significant abnormality is noted in bilateral basal ganglia, brain stem, or cerebellar hemispheres. Thick slices through the sella with the pituitary gland, pineal region, upper cervical spine, and internal auditory canals with the inner ear structures are grossly unremarkable. S-shaped nasal septal deviation is noted with mild bilateral ethmoid sinus mucosal thickening. Imaged mastoids are unremarkable. there is susceptibility artifact in the left lateral aspect of the left eye globe, along the periphery of the left orbit. The adjacent left ocular structures are intact. Postcontrast sequences do not demonstrate enhancing lesions. IMPRESSION 1. A few nonspecific nonenhancing tiny hyperintense T2 foci are noted in STS. [facility] A Service of [facility] & [facility] RADIOLOGY TEXT RESULTS PATIENT: RUI MARTINEZ LOCATION: [facility] : 58 UNIT #: [id number] AGE: [address]: Lakia Roth MD SEX: F ORDER DR: the supratentorial white matter, particularly in the left frontal subcortical region. They are likely related to minimal chronic microvascular ischemic change or migraine, based on age and statistics. 2. there is susceptibility artifact in the left lateral aspect of the left eye globe, along the periphery of the left orbit. The adjacent left ocular structures are intact. Dictated by... Carrie Sue M.D. THIS IS AN ELECTRONICALLY VERIFIED REPORT Carrie Sue M.D. at 10/28/2016 1:16 PM CPR/rk TD: 10/27/2016 18:01 JOB #: [id number] MRI CENTER REPORT Page 1 of 1
== END | disposition home or self-care (01) ==
LOC: SMRI 08:11
DX: R51 Headache (principal); R41.82 Altered mental status, unspecified; R90.82 White matter disease, unspecified
CPT/HCPCS: 70553; A9581

== ENCOUNTER 2016-11-23 21:25 | Emergency (ER) | payer MEDICARE, OTHER ==
[~2016-11-23] VITALS: Ht 149.9 cm; Wt 54.4 kg
--- NOTE | ~2016-11-23 | EKG ---
PATIENT: RUI MARTINEZ UNIT #: [id number] Ventricular Rate: 73 BPM Atrial Rate: 73 BPM P-R Interval: 158 ms QRS Duration: 90 ms Q-T Interval: 438 ms QTC Calculation(Bezet): 482 ms P [place]: 45 degrees Calculated R [place]: 47 degrees Calculated T [place]: 35 degrees Diagnosis Line: Normal sinus rhythm Diagnosis Line: Cannot rule out Anterior infarct , age Diagnosis Line: undetermined Diagnosis Line: Abnormal ECG Diagnosis Line: When compared with ECG of 01-OCT-2016 14:54, Diagnosis Line: IN interval has decreased Diagnosis Line: Minimal criteria for Anterior infarct are now Diagnosis Line: Present Diagnosis Line: Confirmed by JAMI GALICIA MD ([id number]) on Diagnosis Line: 11/24/2016 12:39:23 PM INTERPRETING MD: FRIDA IRENE
[2016-11-23 22:45] LABS: BASOPHIL# 0.1 X10e3 (0-0.3); BASOPHIL% 0.8 % (0-2.5); EOSINOPHIL# 0.2 X10e3 (0-0.7); EOSINOPHIL% 1.7 % (0.0-7.0); HEMATOCRIT 40.2 % (35.0-45.0); HEMOGLOBIN 13.6 gm/dL (12.0-16.0); LYMPHOCYTE# 5.2 X10e3 (1.0-3.5); LYMPHOCYTE% 51.1 % (17.0-45.0); MEAN CORPUSCULAR HEMOGLOBIN 28.3 PG (28-34); MEAN CORPUSCULAR HGB CONC 33.7 g/dL (30-36); MEAN PLATELET VOLUME 7.2 FL (6.5-11.5); MONOCYTE# 0.8 X10e3 (0-1.0); MONOCYTE% 7.5 % (3.0-12.0); NEUTROPHIL% 38.9 % (40-75); PLATELET COUNT 405 X10e3 (140-420); RED BLOOD COUNT 4.79 X10e (3.90-5.30); RED CELL DISTRIBUTION WIDTH 14.7 % (11.0-15.5); WHITE BLOOD COUNT 10.2 X10e3 (4.0-10.5)
[2016-11-23 22:50] LABS: DIFF IND NO
[2016-11-23 23:00] LABS: BUN/CREATININE RATIO 23.75; CALCIUM SERUM 9.4 mg/dL (8.4-10.2); CREATININE SERUM 0.8 mg/dL (0.6-1.4); GLOM FILT RATE Estimated 81.9 mL/min (>60)
[2016-11-23 23:01] LABS: POTASSIUM 2.8 mmol/L (3.5-5.1)
[2016-11-25 14:19] LABS: POC - CKMB 1.5 ng/mL (0.0-7.9); POC - TROPONIN <0.05 ng/mL (<=0.05)
== END 2016-11-24 01:25 | disposition home or self-care (01) ==
LOC: SED 21:25
PROVIDERS: Emergency Medicine
DX: E87.6 Hypokalemia (principal); E11.9 Type 2 diabetes mellitus without complications; J44.9 Chronic obstructive pulmonary disease, unspecified; E78.5 Hyperlipidemia, unspecified; I10 Essential (primary) hypertension; F20.9 Schizophrenia, unspecified; Z88.0 Allergy status to penicillin; Z88.8 Allergy status to other drugs, medicaments and biological substances; Z79.899 Other long term (current) drug therapy
CPT/HCPCS: 36415; 80048; 82310; 82553; 82947; 83735; 84484; 85025; 93005; 99285